=== PATIENT | female | born 1980 | race Caucasian/White ===

== ENCOUNTER 2018-03-22 18:46 | Emergency (ER) | payer MEDICAID ==
--- NOTE | 2018-03-22 19:06 | ED Physician Documentation ---
History of Present Illness - Stated complaint Stated Complaint: ANKLE INJURY - Chief complaint Chief Complaint: General - History obtained from History obtained from: Patient - History of Present Illness Timing: Today (37-year-old woman turned her ankle today and has lateral ankle pain and unable to ambulate. She declines pain medication on initial evaluation. No other injuries. 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, 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 - Present Medications Home Medications: Ambulatory Orders Medication Instructions Recorded Confirmed Gabapentin 300 mg PO 03/22/18 Meloxicam [Mobic] 7.5 mg PO BIDWM PRN #15 tablet 03/22/18 - Allergies Allergies/Adverse Reactions: Allergies Allergy/AdvReac Type Severity Reaction Status Date / Time meperidine HCl * Allergy unknown Verified 03/22/18 19:03 [From Demerol] ondansetron HCl * Allergy unknown Verified 03/22/18 19:03 [From Zofran] Penicillins Allergy unknown Verified 05/26/14 12:52 ibuprofen AdvReac Mild Nausea Verified 05/26/14 12:52 hydrocodone bitartrate * AdvReac Nausea Verified 05/26/14 12:52 [From Vicodin] - Social History Does the pt smoke?: Yes Smoking Status: Current every day smoker Does the pt drink ETOH?: Yes Does the pt have substance abuse?: No - Immunizations Immunizations are current?: Yes - POLST Patient has POLST: No PD ED PE NORMAL - Vitals Vital signs reviewed: Yes - General General: Alert and oriented X 3, No acute distress - Extremities Extremities: Other (Right leg, there is no tenderness over the proximal fibula. She is tender over the lateral malleolus more so than the ATFL. There is no foot or medial malleolar tenderness.) - Neuro Neuro: Alert and oriented X 3, Normal speech - Psych Psych: Normal mood, Normal affect Results - Vitals Vitals: Vital Signs - 24 hr 05/12/18 19:01 Temperature 36.6 C Heart Rate 93 Respiratory 20 Rate Blood Pressure 121/85 H O2 Saturation 98 Oxygen O2 Source Room air - Rads (name of study) R ankle 3v Radiology: EMP read contemporaneously (normal) Departure - Departure Disposition: Home, Self Care Clinical Impression: Right ankle sprain Qualifiers: Encounter type: initial encounter Involved ligament of ankle: deltoid ligament Qualified Code(s): S93.421A - Sprain of deltoid ligament of right ankle, initial encounter Condition: Good Record reviewed to determine appropriate education?: Yes Instructions: ED Sprain Ankle W X Ray Prescriptions: Meloxicam [Mobic] 7.5 mg PO BIDWM PRN #15 tablet PRN Reason: Pain Comments: Recheck with your doctor in 1 week if not better.
--- NOTE | 2018-03-22 20:00 | XRAY Report ---
EXAM: RIGHT ANKLE RADIOGRAPHY EXAM DATE: 03/22/2018 07:35 PM. CLINICAL HISTORY: Ankle pain post injury. COMPARISON: None. TECHNIQUE: 3 views. FINDINGS: Bones: Normal. No fractures or bone lesions. Joints: Normal. No effusion. No subluxations. The ankle mortise is normally aligned. Soft Tissues: Normal. No soft tissue swelling. IMPRESSION: Normal ankle radiography. [facility] Referring Provider Line: [phone] SITE ID: [id number]
--- NOTE | 2018-03-22 20:00 | XRAY Preliminary Report ---
Exam: XR ANKLE 3 VIEW RT IMPRESSION: Normal ankle radiography. [facility] SITE ID: [id number]
[2018-03-22] MEDS ORDERED: MELOXICAM 7.5 MG TABLET PO STA (20:13)
[2018-03-22 20:28] VITALS: BP 107/86
== END 2018-03-22 20:31 | disposition home or self-care (01) ==
LOC: ED 18:46
DX: S93.421A Sprain of deltoid ligament of right ankle, initial encounter (principal); X50.1XXA Overexertion from prolonged static or awkward postures, initial encounter; Y93.H2 Activity, gardening and landscaping; M32.9 Systemic lupus erythematosus, unspecified; M06.9 Rheumatoid arthritis, unspecified; M79.7 Fibromyalgia; F17.200 Nicotine dependence, unspecified, uncomplicated
CPT/HCPCS: 73610; 99283; A9270

== ENCOUNTER 2018-10-22 08:13 | Emergency (ER) | payer MEDICAID ==
[2018-10-22] MEDS ORDERED: oxyCODONE 5 MG TABLET PO STA (08:34)
[2018-10-22] MEDS ORDERED: PROMETHAZINE 25 MG TABLET PO STA (08:34)
[2018-10-22] MEDS ORDERED: LIDOCAINE 1%-EPI 1:100000 30 ML MDV TD STA (08:36)
--- NOTE | 2018-10-22 08:40 | ED Physician Documentation ---
History of Present Illness - Stated complaint Stated Complaint: LEFT LEG BUMP - Chief complaint Chief Complaint: Wound - Additonal information Additional information: hx from pt 37 f denies preg has lupus but not taking meds for same to ED with large abscess to L thigh states no known injury or open wound to that site subj fever chills NV today due to pain Review of Systems Constitutional: reports: Fever, Chills GI: reports: Nausea, Vomiting : denies: Now EGA (denies) Skin: reports: Other (abscess) Immunocompromised: denies: Immunocompromised PD PAST MEDICAL HISTORY - Past Medical History Cardiovascular: None Respiratory: None Endocrine/Autoimmune: Systemic lupus erythematosus GI: Hepatitis, Cholelithiasis : Retention, Chronic bladder infection HEENT: None Psych: Depression, Anxiety, Post traumatic stress disorder Musculoskeletal: Rheumatoid arthritis, Fibromyalgia, Fatigue, Chronic back pain Derm: None - Past Surgical History 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, 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 - Present Medications Home Medications: Ambulatory Orders Medication Instructions Recorded Confirmed Cephalexin [Keflex] 500 mg PO Q6H #28 capsule 10/22/18 Saccharomyces Boulardii [Florastor] 500 mg PO BID #40 capsule 10/22/18 Sulfamethox/Trimeth 800/160 1 each PO BID #14 tablet 10/22/18 [Bactrim Ds 800/160] - Allergies Allergies/Adverse Reactions: Allergies Allergy/AdvReac Type Severity Reaction Status Date / Time meperidine HCl * Allergy unknown Verified 10/22/18 08:23 [From Demerol] ondansetron HCl * Allergy unknown Verified 10/22/18 08:23 [From Zofran] Penicillins Allergy unknown Verified 10/22/18 08:23 ibuprofen AdvReac Mild Nausea Verified 10/22/18 08:23 hydrocodone bitartrate * AdvReac Nausea Verified 10/22/18 08:23 [From Vicodin] - Social History Does the pt smoke?: Yes Smoking Status: Current every day smoker Does the pt drink ETOH?: Yes Does the pt have substance abuse?: No - Immunizations Immunizations are current?: Yes - POLST Patient has POLST: No PD ED PE NORMAL - Vitals Vital signs reviewed: Yes - Cardiac Cardiac: RRR - Respiratory Respiratory: No respiratory distress, Clear bilaterally - Derm Derm: Other (large 10 cm diameter abscess to L thigh) Results - Vitals Vitals: Vital Signs - 24 hr 10/22/18 10/22/18 10/22/18 08:20 10:07 10:09 Temperature 36.7 C 36.8 C Heart Rate 86 77 Respiratory 16 16 Rate Blood Pressure 141/99 H 113/76 O2 Saturation 99 100 Oxygen O2 Source Room air - Labs Labs: Microbiology 10/22/18 10:00 Wound Culture - Preliminary Abscess Procedures - Abscess I&D (location) L thigh Preparation: Betadine, Lidocaine 1% (6 cc), With epi Incision: Incised with scalpel, Purulent drainage (large amt - used wall sucti on), Packed, Culture obtained Other: Pt tolerated well (painful despite dilaudid 2 mg and local anesthesia but pt cooperative and tolerated procedure), Dressing applied, Antibiotic prescribed PD MEDICAL DECISION MAKING - ED course ED course: no IV access, arms scarred, 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 but this is a huge abscess and pt will need some pain management to allow drainage tried PO but she vomited meds so gave IM then local anesthesia I&D yielded large amt of pus, packed, dressed, started keflex (pt has taken before s rxn despite penicillin allergy) and bactrim pt is homeless and does not have transport - will need to return to ER for packing change wound check as she also has no PMD - clearly explained to pt the importance of follow up care and taking her antibiotics SW met with pt to assist with fup transport etc - see SW note given that she is a heroin IVDA did not prescribe pain meds at dc Departure - Departure Disposition: 01 Home, Self Care Clinical Impression: Abscess Condition: Good Instructions: ED Abscess IandD Prescriptions: Cephalexin [Keflex] 500 mg PO Q6H #28 capsule Saccharomyces Boulardii [Florastor] 500 mg PO BID #40 capsule Sulfamethox/Trimeth 800/160 [Bactrim Ds 800/160] 1 each PO BID #14 tablet Comments: This was a very large abscess with significant surrounding skin infection. It is very very important that you get the antibiotics I have prescribed and take them as directed and that you come back to the ER each day to have the packing changed. If you do not take the antibiotics and return for wound checks the infection could get worse and you could develop sepsis or lose your leg or Discharge Date/Time: 10/22/18 12:11
[2018-10-22] MEDS ORDERED: HYDROmorphone 1 MG/ML CARPUJECT IM STA (09:04)
[2018-10-22] MEDS ORDERED: PROMETHAZINE 25 MG/1 ML VIAL IM STA (09:04)
[2018-10-22 10:08] VITALS: BP 113/76
[2018-10-22] MEDS ORDERED: cephALEXin 250 MG CAPSULE PO STA (10:13)
[2018-10-22] MEDS ORDERED: SULFAMETH/TRIMETH DS 800/160 MG TABLET PO STA (10:14)
== END 2018-10-22 12:11 | disposition home or self-care (01) ==
LOC: ED 08:13
DX: L02.416 Cutaneous abscess of left lower limb (principal); M32.9 Systemic lupus erythematosus, unspecified; F17.200 Nicotine dependence, unspecified, uncomplicated; Z59.0 Homelessness
CPT/HCPCS: 10060; 87070; 87205; 96372; 99283; A9270; J1170; Q0169; 87181

== ENCOUNTER 2019-01-01 03:02 | Emergency (ER) | payer MEDICAID ==
--- NOTE | 2019-01-01 03:13 | ED Physician Documentation ---
PD HPI ABD PAIN - Stated complaint Stated Complaint: L SIDE PAIN - History obtained from History obtained from: Patient - History of Present Illness Timing - onset: Yesterday Timing - details: Abrupt onset, Waxing and waning Pain level max: 10 Pain level now: 7 Quality: Pain Location: LUQ Radiation: Left flank Improved by: Other (nothing) Worsened by: Eating Associated symptoms: Nausea, Vomiting. No: Fever, Diarrhea, Constipation Similar symptoms before: Diagnosis (some similarity to previous episodes of pancreatitis) Recently seen: Emergency Dept (T+R from this ED 2 months ago for leg abscess) Review of Systems Constitutional: denies: Fever, Chills, Sweats Cardiac: reports: Reviewed and negative Respiratory: reports: Reviewed and negative GI: reports: Abdominal Pain, Nausea, Vomiting. 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 - Present Medications Home Medications: Ambulatory Orders Medication Instructions Recorded Confirmed Cephalexin [Keflex] 500 mg PO Q6H #28 capsule 10/22/18 Saccharomyces Boulardii [Florastor] 500 mg PO BID #40 capsule 10/22/18 Sulfamethox/Trimeth 800/160 1 each PO BID #14 tablet 10/22/18 [Bactrim Ds 800/160] Cephalexin [Keflex] 500 mg PO Q6H #28 capsule 01/01/19 Promethazine [Phenergan] 25 mg PO Q6H PRN #10 tab 01/01/19 - Allergies Allergies/Adverse Reactions: Allergies Allergy/AdvReac Type Severity Reaction Status Date / Time meperidine HCl * Allergy unknown Verified 10/22/18 08:23 [From Demerol] ondansetron HCl * Allergy unknown Verified 10/22/18 08:23 [From Zofran] Penicillins Allergy unknown Verified 10/22/18 08:23 ibuprofen AdvReac Mild Nausea Verified 10/22/18 08:23 hydrocodone bitartrate * AdvReac Nausea Verified 10/22/18 08:23 [From Vicodin] - Social History Does the pt smoke?: Yes Smoking Status: Current every day smoker Does the pt drink ETOH?: Yes Does the pt have substance abuse?: No - Immunizations Immunizations are current?: Yes - POLST Patient has POLST: No PD ED PE NORMAL - Vitals Vital signs reviewed: Yes - General General: Alert and oriented X 3, No acute distress, Well developed/nourished - HEENT HEENT: Moist mucous membranes - Neck Neck: Supple, no meningeal sign - Cardiac Cardiac: No murmur - Respiratory Respiratory: No respiratory distress, Clear bilaterally - Abdomen Abdomen: Normal bowel sounds, Soft, Non tender, Non distended PD ED PE EXPANDED - Cardiac Cardiac: Tachy, Regular Rhythm - Derm Derm: Track sanches (BUE) Results - Vitals Vitals: Vital Signs - 24 hr 01/01/19 04:30 Heart Rate 90 Respiratory 17 Rate Blood Pressure 123/82 H O2 Saturation 100 Oxygen O2 Source Room air - Labs Labs: Laboratory Tests 01/01/19 01/01/19 01/01/19 02:50 02:50 04:00 WBC 11.4 H RBC 5.24 Hgb 13.3 Hct 40.8 MCV 77.9 L MCH 25.4 L MCHC 32.6 RDW 15.9 H Plt Count 217 MPV 9.2 Neut # (Auto) 7.6 H Lymph # (Auto) 2.9 [place] # (Auto) 0.9 Eos # (Auto) 0.1 Baso # (Auto) 0.0 Absolute Nucleated RBC 0.01 Nucleated RBC % 0.1 Sodium 137 Potassium 3.1 L Chloride 105 Carbon Dioxide 22 Anion Gap 10.0 BUN 22 H Creatinine 0.9 Estimated GFR (MDRD) 70 L Glucose 150 H Calcium 9.8 Total Bilirubin 1.1 H AST 26 ALT 24 Alkaline Phosphatase 129 H Total Protein 8.8 H Albumin 4.2 Globulin 4.6 H Albumin/Globulin Ratio 0.9 L Lipase 23 Urine Color DARK YELLOW Urine Clarity h Urine pH 5.5 Ur Specific [place] >=1.030 H Urine Protein 30 H Urine Glucose (UA) NEGATIVE Urine Ketones NEGATIVE Urine Occult Blood NEGATIVE Urine Nitrite POSITIVE H Urine Bilirubin NEGATIVE Urine Urobilinogen 0.2 (NORMAL) Ur Leukocyte Esterase NEGATIVE Urine RBC 0-5 Urine WBC 11-25 H Ur Squamous Epith Cells FEW Squamous Urine Bacteria Many H Urine Casts 6-10 Fine Granular Ur Microscopic Review INDICATED Urine Culture Comments INDICATED Urine HCG, Qual NEGATIVE PD MEDICAL DECISION MAKING - ED course Complexity details: reviewed old records, reviewed results, re-evaluated patient, considered differential, d/w patient Departure - Departure Disposition: 01 Home, Self Care Clinical Impression: Hypokalemia Urinary tract infection Qualifiers: Urinary tract infection type: acute cystitis Hematuria presence: without hematuria Qualified Code(s): N30.00 - Acute cystitis without hematuria Condition: Good Instructions: ED Potassium Deficiency, ED UTI Cystitis Female Follow-Up: [facility] [Provider Group] [facility] [Provider Group] Prescriptions: Cephalexin [Keflex] 500 mg PO Q6H #28 capsule Promethazine [Phenergan] 25 mg PO Q6H PRN #10 tab PRN Reason: Nausea / Vomiting Discharge Date/Time: 01/01/19 05:00
[2019-01-01 03:31] LABS: BASOPHILS % (AUTO) 0.3 %; EOSINOPHILS # (AUTO) 0.1 10^3/uL (0.0-0.7); EOSINOPHILS % (AUTO) 0.7 %; HGB - HEMOGLOBIN 13.3 g/dL (12.0-16.0); LYMPHOCYTES # (AUTO) 2.9 10^3/uL (1.5-3.5); LYMPHOCYTES % (AUTO) 25.3 %; MEAN CORPUSCULAR HEMOGLOBIN 25.4 pg (27.0-31.0); MEAN CORPUSCULAR HGB CONC 32.6 g/dL (32.0-36.0); MEAN CORPUSCULAR VOLUME 77.9 fL (81.0-99.0); MEAN PLATELET VOLUME 9.2 fL (7.9-10.8); MONOCYTES # (AUTO) 0.9 10^3/uL (0.0-1.0); MONOCYTES % (AUTO) 7.5 %; NEUTROPHILS # (AUTO) 7.6 10^3/uL (1.5-6.6); NEUTROPHILS % (AUTO) 66.2 %; PLT - PLATELET COUNT 217 10^3/uL (130-450); RED BLOOD COUNT 5.24 10^6/uL (4.20-5.40); RED CELL DISTRIBUTION WIDTH 15.9 % (12.0-15.0); WHITE BLOOD COUNT 11.4 x10^3/uL (4.8-10.8)
[2019-01-01 03:56] LABS: ALBUMIN 4.2 g/dL (3.2-5.5); ALBUMIN/GLOBULIN RATIO 0.9 (1.0-2.2); BILIRUBIN,TOTAL 1.1 mg/dL (0.2-1.0); CALCIUM 9.8 mg/dL (8.5-10.3); CREATININE 0.9 mg/dL (0.4-1.0); TOTAL PROTEIN 8.8 g/dL (6.7-8.2)
[2019-01-01 04:05] LABS: GLUCOSE, URINE (UA) NEGATIVE (NEGATIVE); KETONES,URINE (UA) NEGATIVE (NEGATIVE); LEUKOCYTE ESTERASE, URINE NEGATIVE (NEGATIVE); NITRITE,URINE POSITIVE (NEGATIVE); OCCULT BLOOD,URINE NEGATIVE (NEGATIVE); PH,URINE 5.5 PH (5.0-7.5); PROTEIN,URINE 30 mg/dL (NEGATIVE); UROBILINOGEN,URINE 0.2 (NORMAL) E.U./dL (NORMAL)
[2019-01-01 04:08] LABS: BILIRUBIN,URINE NEGATIVE (NEGATIVE); HCG UR QUAL NEGATIVE; ICTOTEST,URINE NEGATIVE
[2019-01-01] MEDS ORDERED: PROMETHAZINE 25 MG TABLET PO STA (04:14)
[2019-01-01 04:15] LABS: RBC,URINE 0-5 /HPF (0-5)
[2019-01-01 04:16] LABS: BACTERIA,URINE Many /HPF (None Seen); SQUAMOUS EPITHELIAL CELL,UR FEW Squamous (<= Few)
[2019-01-01 04:31] VITALS: BP 123/82
[2019-01-01] MEDS ORDERED: NITROFURANTOIN MACRO 100 MG CAPSULE PO STA (04:31)
[2019-01-01] MEDS ORDERED: POTASSIUM BICARB 25 MEQ TABLET PO STA (04:41)
[2019-01-01] MEDS ORDERED: cephALEXin 250 MG CAPSULE PO STA (04:41)
== END 2019-01-01 05:00 | disposition home or self-care (01) ==
LOC: ED 03:02
DX: N30.00 Acute cystitis without hematuria (principal); E87.6 Hypokalemia; M32.9 Systemic lupus erythematosus, unspecified; F17.200 Nicotine dependence, unspecified, uncomplicated
CPT/HCPCS: 36415; 80053; 81001; 81025; 83690; 85025; 87086; 87181; 99283; A9270; Q0169; 81003

== ENCOUNTER 2019-04-09 06:11 | Emergency (ER) | payer MEDICAID ==
[2019-04-09 06:24] VITALS: BP 127/75
--- NOTE | 2019-04-09 06:53 | ED Physician Documentation ---
History of Present Illness - Stated complaint Stated Complaint: EAR PX/RT LEG PX - Chief complaint Chief Complaint: General - History obtained from History obtained from: Patient - Additonal information Additional information: Patient is a 38-year-old female with history of IV heroin use presenting with abscess to right posterior thigh. Patient denies the abscess resulting from IV drug use, however, she did use yesterday. Symptoms began prior to her using yesterday including warmth, redness, swelling, and pain. Patient denies fever or other symptoms.No other worsening or improving factors noted. 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 - Present Medications Home Medications: Ambulatory Orders Medication Instructions Recorded Confirmed Gabapentin 600 mg PO BID 04/09/19 04/09/19 Methadone 120 mg PO DAILY 04/09/19 04/09/19 - Allergies Allergies/Adverse Reactions: Allergies Allergy/AdvReac Type Severity Reaction Status Date / Time meperidine HCl * Allergy unknown Verified 04/09/19 06:24 [From Demerol] ondansetron HCl * Allergy unknown Verified 04/09/19 06:24 [From Zofran] Penicillins Allergy unknown Verified 04/09/19 06:24 ibuprofen AdvReac Mild Nausea Verified 04/09/19 06:24 hydrocodone bitartrate * AdvReac Nausea Verified 04/09/19 06:24 [From Vicodin] - Social History Does the pt smoke?: Yes Smoking Status: Current every day smoker Does the pt drink ETOH?: Yes Does the pt have substance abuse?: Yes Substance Use and Type: Heroin, Other - Immunizations Immunizations are current?: Yes - POLST Patient has POLST: No PD ED PE NORMAL - Vitals Vital signs reviewed: Yes - General General: Alert and oriented X 3, No acute distress, Well developed/nourished - HEENT HEENT: Atraumatic - Respiratory Respiratory: No respiratory distress - Derm Derm: Other (Golf ball sized area of abscess with surrounding cellulitis to right posterior thigh, tender and warm to the touch. No lymphangitis) - Extremities Extremities: No deformity, No tenderness to palpate, Normal ROM s pain, No edema - Neuro Neuro: Alert and oriented X 3, No motor deficit, No sensory deficit - Psych Psych: Normal mood, Normal affect Results - Vitals Vitals: Vital Signs - 24 hr 04/09/19 06:20 Temperature 36.4 C L Heart Rate 94 Respiratory 16 Rate Blood Pressure 127/75 O2 Saturation 100 Oxygen O2 Source Room air Procedures - Abscess I&D (location) Lower extremity right Posterior Preparation: Alcohol, Lidocaine 1%, With epi Incision: Incised with scalpel, Purulent drainage, Packed, Culture obtained Other: Pt tolerated well, Dressing applied PD MEDICAL DECISION MAKING - ED course Complexity details: re-evaluated patient, considered differential, d/w patient ED course: Patient presenting with abscess and surrounding cellulitis to right posterior thigh. Patient is amenable to an I&D which was performed with purulent drainage found and wound culture sent. Given concern for MRSA, plan to start antibiotics of both Bactrim and Keflex. Also discussed appropriate hygiene, wound care, return precautions, and follow-up. Otherwise, do not feel the patient is requiring further invasive testing or imaging. No signs of sepsis or other systemic illness. Patient voiced understanding and is comfortable discharge plan. Departure - Departure Disposition: 01 Home, Self Care Clinical Impression: Cellulitis and abscess of leg Condition: Good Instructions: ED Infec Skin Cellulitis Follow-Up: your, doctor [Other] Comments: Please keep area clean and dry using running water and soap to clean. Do not submerge underwater or apply heat. Please take antibiotics as prescribed to treat infection. If packing material falls out, leave it out. Please follow-up with your primary care physician in next 2 to 3 days and return to ED sooner if experience worsening symptoms or other concerns.
== END 2019-04-09 07:06 | disposition home or self-care (01) ==
LOC: ED 06:11
DX: L02.415 Cutaneous abscess of right lower limb (principal); L03.115 Cellulitis of right lower limb; F11.10 Opioid abuse, uncomplicated; M32.9 Systemic lupus erythematosus, unspecified; F17.200 Nicotine dependence, unspecified, uncomplicated
CPT/HCPCS: 10060; 99283

== ENCOUNTER 2019-08-24 15:58 | Inpatient (IN) | payer MEDICAID ==
[2019-08-24] MEDS ORDERED: diphenhydrAMINE INJ 50 MG/ML VIAL IVP STA (16:17)
[2019-08-24] MEDS ORDERED: BUFFERED LIDOCAINE 10 ML SYRINGE SUBQ STA (16:17)
[2019-08-24] MEDS ORDERED: METOCLOPRAMIDE 10 MG/2 ML VIAL IVP STA (16:17)
--- NOTE | 2019-08-24 16:22 | ED Physician Documentation ---
PD HPI FOCAL NEURO - Stated complaint Stated Complaint: NUMBNESS AND TINGLING LEFT SIDE - Chief complaint Chief Complaint: Neuro - History obtained from History obtained from: Patient - History of Present Illness Timing - onset: Today (38-year-old woman with history of IV drug use, currently on methadone but she says she is still using. Also history of stroke she says in May, complete resolution. She had some sort of blood clotting disorder for which she was placed on numerous anticoagulants and she recognizes the names aspirin, Plavix, and warfarin. She says she was on 3 blood thinners. She ran out of her blood thinners about a week ago due to some transportation and other social issues. At about that time she developed a painful abscess on the right leg. It is not associate with fevers or chills. She is never had MRSA. Today around 5 AM she noted left-sided numbness in the arm and the leg which made her worried about stroke again. She has a some moderate to severe frontal headache with this. It was not sudden in onset.) Review of Systems Constitutional: denies: Fever, Chills Cardiac: denies: Chest pain / pressure, Palpitations Respiratory: denies: Dyspnea, Cough GI: denies: Abdominal Pain, Nausea, Vomiting : denies: Dysuria PD PAST MEDICAL HISTORY - Past Medical History Cardiovascular: None Respiratory: None Neuro: Seizure disorder Endocrine/Autoimmune: Systemic lupus erythematosus GI: Hepatitis, Cholelithiasis : Retention, Chronic bladder infection HEENT: None Psych: Depression, Anxiety, Post traumatic stress disorder Musculoskeletal: Rheumatoid arthritis, Fibromyalgia, Fatigue, Chronic back pain Derm: None - Past Surgical History Past Surgical History: Yes 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, 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 - Present Medications Home Medications: Ambulatory Orders Medication Instructions Recorded Confirmed Gabapentin 600 mg PO BID 04/09/19 08/24/19 Methadone 120 mg PO DAILY 04/09/19 08/24/19 - Allergies Allergies/Adverse Reactions: Allergies Allergy/AdvReac Type Severity Reaction Status Date / Time meperidine HCl * Allergy unknown Verified 08/24/19 16:10 [From Demerol] ondansetron HCl * Allergy unknown Verified 08/24/19 16:10 [From Zofran] Penicillins Allergy unknown Verified 08/24/19 16:10 ibuprofen AdvReac Mild Nausea Verified 08/24/19 16:10 hydrocodone bitartrate * AdvReac Nausea Verified 08/24/19 16:10 [From Vicodin] - Social History Does the pt smoke?: Yes Smoking Status: Current every day smoker Does the pt drink ETOH?: Yes Does the pt have substance abuse?: Yes - Immunizations Immunizations are current?: Yes - POLST Patient has POLST: No PD ED PE NORMAL - Vitals Vital signs reviewed: Yes - General General: Alert and oriented X 3, No acute distress - HEENT HEENT: PERRL, EOMI - Neck Neck: Supple, no meningeal sign, No bony TTP - Cardiac Cardiac: RRR, No murmur - Respiratory Respiratory: No respiratory distress, Clear bilaterally - Abdomen Abdomen: Non tender - Extremities Extremities: Other (A lot of scarring in the antecubital fossa on the right from prior injection drug use, old healed self-inflicted lacerations on the left forearm. There is a large abscess, a little smaller than a baseball on the posterior lateral right thigh. 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, No motor deficit, No sensory deficit, Normal speech Eye Opening: Spontaneous Motor: Obeys Commands Verbal: Oriented GCS Score: 15 - Psych Psych: Normal mood, Normal affect NIHSS - Time Time: 16:18 - Level of Consciousness Level of consciousness: (0) Alert, Keenly responsive LOC Questions: (0) Answers both Q's correct LOC Commands: (0) Performs both correctly - Gaze Best Gaze: (0) Normal - Visual Visual: (0) No loss - Facial Palsy Facial Palsy: (0) Normal, symmetrical movement - Motor Arms (both separate) Motor Arm (right): (0) No drift Motor Arm (left): (0) No drift - Motor Legs (both separate) Motor Leg (right): (0) No drift Motor Leg (left): (0) No drift - Limb Ataxia Limb Ataxia: (0) Absent - Sensory Sensory: (0) Normal - Best Language Best Language: (0) No aphasia - Dysarthria Dysarthria: (0) Normal - Extinction and Inattention (formally neg Extinction and inattention: (0) No abnormality - Total Score/Results Total Score/Result: 0 Results - Vitals Vitals: Vital Signs - 24 hr 1008/24/19 08/24/19 16:06 17:07 17:44 Temperature 36.6 C Heart Rate 91 70 64 Respiratory 12 20 12 Rate Blood Pressure 132/89 H 107/71 102/59 L O2 Saturation 98 97 99 08/24/19 08/24/19 08/24/19 17:53 17:59 18:01 Temperature Heart Rate 126 H 68 104 H Respiratory 24 16 14 Rate Blood Pressure 148/99 H 151/102 H O2 Saturation 100 100 Oxygen O2 Source Nasal cannula - EKG (time done) 1649 Rate: Rate (enter#) (72) Rhythm: NSR [place]: Normal Intervals: Normal IA QRS: Normal Ischemia: Normal ST segments Computer interpretation: Agree with computer - Labs Labs: Laboratory Tests 08/24/19 08/24/19 08/24/19 16:32 16:32 16:32 WBC 10.3 RBC 4.34 Hgb 11.1 L Hct 36.2 L MCV 83.4 MCH 25.6 L MCHC 30.7 L RDW 14.3 Plt Count 301 MPV 10.6 Neut # (Auto) 8.6 H Lymph # (Auto) 1.0 L [place] # (Auto) 0.5 Eos # (Auto) 0.1 Baso # (Auto) 0.0 Absolute Nucleated RBC 0.00 Nucleated RBC % 0.0 PT 14.7 H INR 1.3 H Sodium 139 Potassium 4.2 Chloride 102 Carbon Dioxide 25 Anion Gap 12.0 BUN 10 Creatinine 0.6 Estimated GFR (MDRD) 112 Glucose 106 H Calcium 9.5 Total Bilirubin 0.9 AST 24 ALT 16 Alkaline Phosphatase 95 Total Protein 9.1 H Albumin 3.7 Globulin 5.4 H Albumin/Globulin Ratio 0.7 L Lipase 21 L Ethyl Alcohol < 5.0 - Rads (name of study) CTA Head Radiology: EMP read contemporaneously (NAD) CTA Neck Radiology: EMP read contemporaneously (Vascular rand she is normal. Multilevel disc degenerative disease with spinal stenosis at C5/C6.) Procedures - General procedure General procedure: She was difficult for IV access due to prior IV drug use. I personally placed a long 20-gauge IV in the right deep brachial vein using real-time ultrasound guidance after ChloraPrep that flushed easily and blood was drawn. - Abscess I&D (location) RLE Preparation: Betadine, Lidocaine 1% Incision: Incised with scalpel (2 incisions were made, one at the top end of the abscess somewhat at the bottom end, loculations were broken with hemostat and then a [place] was passed between the 2 incisions and looped outside. A culture was obtained.), Purulent drainage Other: Pt tolerated well - Procedural sedation Sedation prep: Informed consent, Time out completed, AHA 2 - mild disease Sedation medications: ketamine (150mg IVP) Patient status during sedation: Responds to tactile, Vitals remained stable, Maintained airway, Recovered uneventfully Sedation recovery: Recovered uneventfully Time in sedation (Minutes): 15 PD MEDICAL DECISION MAKING - ED course Complexity details: reviewed old records (Discharge in summary dated June 10 of this year from [facility] was received and reviewed.MRI showed a small CVA in the left insula. She had positive anti-phosphatidylserine antibody. She was on aspirin and Plavix for 3 weeks and then just Plavix was the plan.) ED course: 38-year-old woman with history of IV drug use, stroke in May, now medical noncompliance and off of the Plavix that she is supposed to be on for a week presents with left-sided numbness, arm and leg. She is not a candidate for TPA as the symptoms started almost 12 hours ago. No evidence of large vessel occlusion on CT angiography of the head or neck. She also has a large right thigh abscess. She will need sedation for incision and drainage, I do not think she would tolerate attempts at bedside incision and drainage without it. CT angiography was notable for potential spinal stenosis in the neck, I do not think this would explain unilateral symptoms in the arm and leg though. The abscess was incised and drained under sedation. A culture was sent. She is started on vancomycin. - Consults Consults: Discussed case with (Dr Otoole; for admit 222) Departure - Departure Disposition: 66 [facility] DC/Xfer Clinical Impression: Stroke-like symptoms, Cervical spinal stenosis, Abscess of right leg, IV drug abuse Condition: Fair
[2019-08-24] MEDS ORDERED: IOVERSOL 320 100 ML VIAL IVP ONE ×3 (16:32→21:04)
[2019-08-24 16:41] LABS: BASOPHILS % (AUTO) 0.4 %; EOSINOPHILS # (AUTO) 0.1 10^3/uL (0.0-0.7); EOSINOPHILS % (AUTO) 0.7 %; HGB - HEMOGLOBIN 11.1 g/dL (12.0-16.0); LYMPHOCYTES % (AUTO) 9.6 %; MEAN CORPUSCULAR HEMOGLOBIN 25.6 pg (27.0-31.0); MEAN CORPUSCULAR HGB CONC 30.7 g/dL (32.0-36.0); MEAN CORPUSCULAR VOLUME 83.4 fL (81.0-99.0); MEAN PLATELET VOLUME 10.6 fL (7.9-10.8); MONOCYTES # (AUTO) 0.5 10^3/uL (0.0-1.0); MONOCYTES % (AUTO) 4.9 %; NEUTROPHILS # (AUTO) 8.6 10^3/uL (1.5-6.6); NEUTROPHILS % (AUTO) 83.8 %; PLT - PLATELET COUNT 301 10^3/uL (130-450); RED BLOOD COUNT 4.34 10^6/uL (4.20-5.40); RED CELL DISTRIBUTION WIDTH 14.3 % (12.0-15.0); WHITE BLOOD COUNT 10.3 x10^3/uL (4.8-10.8)
[2019-08-24 16:45] LABS: INR 1.3 (0.8-1.2); PT - PROTHROMBIN TIME 14.7 secs (9.9-12.6)
[2019-08-24] MEDS ORDERED: VANCOMYCIN INJ 2 GM in SODIUM CHLORIDE 0.9% 500 ML IV STA (16:58)
[2019-08-24 17:00] LABS: ALBUMIN 3.7 g/dL (3.2-5.5); ALBUMIN/GLOBULIN RATIO 0.7 (1.0-2.2); ALKALINE PHOSPHATASE 95 IU/L (42-121); ALT ALANINE AMINOTRANSFERASE 16 IU/L (10-60); AST ASPARTATE AMINOTRANSFERASE 24 IU/L (10-42); BILIRUBIN,TOTAL 0.9 mg/dL (0.2-1.0); BUN - BLOOD UREA NITROGEN 10 mg/dL (6-20); CALCIUM 9.5 mg/dL (8.5-10.3); CARBON DIOXIDE - CO2 25 mmol/L (21-32); CHLORIDE 102 mmol/L (101-111); CREATININE 0.6 mg/dL (0.4-1.0); GFR - MDRD 112 (>89); GLUCOSE 106 mg/dL (70-100); LIPASE 21 U/L (22-51); SODIUM 139 mmol/L (135-145); TOTAL PROTEIN 9.1 g/dL (6.7-8.2)
--- NOTE | 2019-08-24 17:28 | CT Report ---
Reason: L numbness Procedure Date: 08/24/2019 Accession Number: [id number] / [id number] Procedure: CT - ANGIO HEAD W/WO CPT Code: FULL RESULT: CT HEAD WITHOUT AND WITH CONTRAST AND CT ANGIOGRAM HEAD INDICATION: 38-year-old female with left-sided numbness. Concern for possible CVA. Please assess. TECHNIQUE: Head CT Sequential 5 mm axial images were obtained through the brain, prior to and following the CT angiogram. CT angiogram head 80 cc of Optiray 320 contrast were injected at a rapid rate through a large bore, antecubital intravenous catheter. The head was scanned helically during arterial phase. The data was reconstructed into 0.5 mm axial images. In addition, MIP reconstructions have been generated in multiple projections to allow better assessment of the intracranial arteries. In accordance with CT protocol optimization, one or more of the following dose reduction techniques were utilized for this exam: automated exposure control, adjustment of mA and/or KV based on patient size, or use of iterative reconstructive technique. COMPARISON: None. FINDINGS: Head CT Ventricular size is normal. The cintron-white differentiation appears to be preserved bilaterally. No evidence of acute, large vessel territory cortical infarction. No intracranial hemorrhage or abnormal extra-axial fluid collection. No mass effect or midline shift. No enhancing space-occupying mass lesion is demonstrated. There appears to be normal intravascular contrast enhancement in the dural venous sinuses and deep venous structures. This effectively excludes the possibility of dural venous sinus thrombosis. The middle ear cavities and mastoid air cells appear clear. The imaged paranasal sinuses are essentially clear. CT angiogram head Anterior circulation: The internal carotid arteries appear widely patent bilaterally. No ICA aneurysm is identified. The A1 segment of the right anterior cerebral artery is mildly hypoplastic with larger left A1 segment. An anterior communicating artery is demonstrated. There appears to be good filling of the A2 and distal PAVAN branches bilaterally. No obvious PAVAN branch occlusion is demonstrated. The middle cerebral arteries are unremarkable. No aneurysm is identified and there is no obvious occlusion or hemodynamically significant stenosis affecting main branches of either MCA. There appear to be a similar number of opacified M3 and M4 branches bilaterally. Posterior circulation: The vertebral arteries and PICAs appear patent. No aneurysm is seen at either PICA origin. The basilar artery, superior cerebellar arteries and main branches of the posterior cerebral arteries appear widely patent. There is a small right posterior communicating artery. There appears to be a tiny left posterior communicator. No aneurysms are seen arising from the basilar artery trunk or apex. IMPRESSION: Head CT No acute intracranial pathology is demonstrated. In particular there is no intracranial hemorrhage and there is no evidence of an acute, large vessel territory cortical infarction (ASPECTS appears to equal 10 bilaterally). However it should be noted that early and small infarctions can be missed on CT. Therefore consider further assessment with MRI as clinically warranted. CT angiogram head Normal examination. In particular there is no evidence of occlusion or hemodynamically significant stenosis affecting main branches of the anterior or posterior circulations. In addition, no intracranial aneurysm is identified.
[2019-08-24] MEDS ORDERED: KETAMINE 500 MG/10 ML VIAL IVP STA (17:32)
[2019-08-24] MEDS ORDERED: ASPIRIN CHEW 81 MG TABLET PO STA (17:32)
[2019-08-24] MEDS ORDERED: CLOPIDOGREL 300 MG TABLET PO STA (17:32)
--- NOTE | 2019-08-24 17:34 | CT Report ---
Reason: L numbness Procedure Date: 08/24/2019 Accession Number: [id number] / [id number] Procedure: CT - ANGIO NECK W CPT Code: FULL RESULT: CT ANGIOGRAM NECK INDICATION: 38-year-old female with left-sided numbness. Concern for CVA. Please assess. TECHNIQUE: 80 cc of Optiray 320 contrast were injected at a rapid rate through a large bore right antecubital intravenous catheter. The neck was scanned helically during arterial phase. The data was reconstructed in 2.5 mm axial images. In addition, MIP reconstructions have been generated to provide better evaluation of the extracranial carotid and vertebral arteries. Significant arterial stenoses will be assessed using NASCET type measurements. In accordance with CT protocol optimization, one or more of the following dose reduction techniques were utilized for this exam: automated exposure control, adjustment of mA and/or KV based on patient size, or use of iterative reconstructive technique. COMPARISON: None. FINDINGS: The innominate artery and left common carotid artery share a common origin. This represents a non-anatomical variant. Branching of the aortic arch is otherwise normal. No stenoses are demonstrated in the first order, supra-aortic arteries. Right carotid artery: Widely patent throughout. Left carotid artery: Widely patent throughout. Right vertebral artery: Widely patent throughout. Left vertebral artery: Widely patent throughout. Incidentally noted is multilevel degenerative change in the cervical spine. There are prominent posterior osteophytes at C4-C5 and C5-C6 indenting the ventral aspect of the thecal sac and reducing the mid sagittal canal diameter to about 6 mm at C4-C5 and about 5.8 mm at C5-C6. IMPRESSION: 1. Normal neck CTA. No evidence of dissection or stenosis in the extracranial carotid or vertebral arteries. 2. Incidentally noted is multilevel disk degeneration in the cervical spine. There is significant appearing diskogenic spinal stenosis at C4-C5 and C5-C6, most prominent at C5-C6 where the mid sagittal canal diameter appears to be reduced to less than 6 mm. This typically equates to severe spinal stenosis. The possibility of cord impingement cannot be excluded. Consider further evaluation with dedicated cervical spine imaging (i.e. MRI) particularly if there is any clinical evidence of cervical myelopathy. RADIA
[2019-08-24] MEDS ORDERED: SODIUM CHLORIDE 0.9% 1,000 ML IV ONE (17:36)
[2019-08-24] MEDS ORDERED: VANCOMYCIN INJ 2 GM in SODIUM CHLORIDE 0.9% 500 ML IV ONE (18:00)
[2019-08-24] MEDS ORDERED: HYDROmorphone 1 MG/ML CARPUJECT IVP STA (18:07)
[2019-08-24] MEDS: HYDROmorphone 1 MG/ML CARPUJECT IVP PRN ×2 (19:48→21:46)
--- NOTE | 2019-08-24 20:27 | HISTORY & PHYSICAL EXAMINATION ---
Chief Complaint - Chief Complaint Chief Complaint: blurry vision, left-sided numbness and tinging History of Present Illness - Admitted From Admitted From:: [facility] ED - History Obtained From Records Reviewed: yes History obtained from: patient and records - History of Present Illness HPI Comment/Other: Patient seen on 08/24/19 at 19:30 pm Patient is a 38 y/o female who presented to the ED today with complain of left- sided numbness and tingling. Onset of her symptoms were around 5am on 08/24/19. She got concerned and decided to come in when she started experiencing blurry vision. She had similar symptoms in May when she was admitted at [place] and diagnosed with a stroke. She was discharged on plavix and aspirin. She was to take coumadin for 4 weeks then stop. She ran out of her medication and has not taken them for about 1 week now. She has been having difficulty ambulating since her stroke in May 2019 due to residual right-sided weakness and uses a cane. Today she could not do a [id number] test. CTA head and neck done in the ED today was unremarkable. Neurology was consulted and she was determined to be outside the window for TPA. She also complains of pain in the mid thigh bilaterally, worse on the lateral aspects. It was particularly worse on the right side where there was an appreciable swelling. She has history of opiod abuse and is currently on methadone. She denies injecting anything in her thighs. She was found to have and abscess which was incised and drained with a penros placed. Her history is somewhat limited because the patient has a gamez-positive ROS despite physical evidence contradicting some responses. As a result of her presentation, she is being admitted for further work up and treatment. 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 strokes on the paternal side of her family Living arrangement: At home Social History Notes: She smokes half pack cigarrette daily. She has history of opiate abuse and is currently on methadone. She denies alcohol use - POLST Patient has POLST: No POLST Status: Full Code Meds/Allgy - Home Medications Home Medications: Ambulatory Orders Medication Instructions Recorded Confirmed Gabapentin 600 mg PO BID 04/09/19 08/24/19 Methadone 80 mg PO DAILY 04/09/19 08/24/19 ALPRAZolam [Alprazolam] 0.25 mg PO TID 08/24/19 08/24/19 Clopidogrel [Plavix] 75 mg PO DAILY 08/24/19 08/24/19 - Allergies Allergies/Adverse Reactions: Allergies Allergy/AdvReac Type Severity Reaction Status Date / Time meperidine HCl * Allergy unknown Verified 08/24/19 16:10 [From Demerol] ondansetron HCl * Allergy unknown Verified 08/24/19 16:10 [From Zofran] Penicillins Allergy unknown Verified 08/24/19 16:10 ibuprofen AdvReac Mild Nausea Verified 08/24/19 16:10 hydrocodone bitartrate * AdvReac Nausea Verified 08/24/19 16:10 [From Vicodin] Review of Systems - Constitutional Constitutional: reports: Weakness. denies: Fatigue, Fever - Eyes Eyes: reports: Blurred vision - Ears, Nose & Throat Ears, Nose & Throat: denies: Nasal discharge, Sore throat, Hoarseness - Cardiovascular Cariovascular: denies: Irregular heart rate, Palpitations, Chest pain, Lightheadedness, Syncope - Respiratory Respiratory: denies: Cough, Sputum production, Wheezing, SOB at rest - Gastrointestinal Gastrointestinal: denies: Abdominal pain, Constipation, Diarrhea, Nausea, Vomi ting, Coffee grounds emesis, Reflux/heartburn - Genitourinary Genitourinary: denies: Dysuria, Frequency, Hematuria - Integumentary Integumentary: reports: Other (swelling and pain midthigh bilaterally) - Neurological Neurological: reports: Focal weakness (left-sided weakness), Headache, Numbness - Psychiatric Psychiatric: reports: Depression, Anxiety - Endocrine Endocrine: denies: Polyuria, Polydypsia - Hematologic/Lymphatic Hematologic/Lymphatic: denies: Anemia, Bruising, Petechiae Prior Level of Functionality: She has been have difficulty getting around since May 2019 due to residual right-sided weakness from a CVA then. She uses a cane Exam - Vital Signs Vital Signs: Vital Signs x48h Temp Pulse Pulse Resp BP BP Pulse Ox 08/24/19 19:24 37.1 C 63 19 116/71 100 08/24/19 18:57 61 18 124/87 H 99 08/24/19 18:34 36.8 C 70 16 124/87 H 100 08/24/19 18:17 72 18 136/98 H 100 08/24/19 18:01 104 H 14 151/102 H 100 08/24/19 17:59 68 16 08/24/19 17:53 126 H 24 148/99 H 100 08/24/19 17:44 64 12 102/59 L 99 08/24/19 17:07 70 20 107/71 97 08/24/19 16:06 36.6 C 91 12 132/89 H 98 - Physical Exam General Appearance: positive: Alert, Moderate distress, Severe distress. negative: Anxious, Lethargic Eyes Bilateral: positive: Normal inspection, PERRL, EOMI ENT: positive: ENT inspection nml. negative: Pharynx nml, No signs of dehydration Neck: positive: Nml inspection, Thyroid nml, No JVD, Trachea midline Respiratory: positive: Chest non-tender, No respiratory distress, Breath sounds nml. negative: Wheezes, Rales, Rhonchi Cardiovascular: positive: Regular rate & rhythm, No murmur Abdomen: positive: Non-tender, No organomegaly, Nml bowel sounds, No distention. negative: Guarding, Rebound Back: positive: Nml inspection Skin: positive: Color nml, Other (abscess on lateral aspect of right thigh painful swelling on lateral aspect of left thigh) Extremities: negative: Full ROM, Nml appearance, No pedal edema Neurologic/Psychiatric: positive: Oriented x3, CN's nml (2-12), Weakness (bilateral lower extremities), Depressed mood/affect. negative: Motor nml, Sensory loss, Facial droop, Slurred/abnml speech Conclusion/Plan - Problem List (1) Stroke Conclusion/Plan: Brain MRI w/o contrast ordered for the am MRI done on 06/03/19 was unremarkable. Neuro checks q 4hrs 2D echo done on 06/03/19 in [place] showed an EF of 60% There was no vegetation. Will not repeat echo Patient received plavix and aspirin in the ED. Will continue once verified by pharmacy Supposed to be on pravastatin (2) Abscess of right leg Conclusion/Plan: Incised and Drained in the ED. Penros drain in place Would cultures collected Patient on vancomycin. Pain management with dilaudid. Resume methadone once verified (3) Abscess of left leg Conclusion/Plan: Due to pain and swelling on the lateral aspect of the left thigh, a CT scan was done which confirmed the presence of an abscess General Surgery was consulted for I&D (4) Chronic back pain Conclusion/Plan: On gabapentin and methadone (5) Seizure Conclusion/Plan: This was after traumatic brain injury in the past. They were focal complex partial seizures She is supposed to be on keppra 750mg po bid but has not been taking it because she ran out Will resume (6) GERD (gastroesophageal reflux disease) Conclusion/Plan: Famotidine ordered (7) IV drug abuse Conclusion/Plan: On methadone. However patient's UDS is also positive for amphetamine (8) Bipolar 1 disorder Conclusion/Plan: Patient does not take any medication (9) Anxiety Conclusion/Plan: On alprazolam. - Lab Results Fish Bones: 08/24/19 16:32 08/24/19 16:32 Core Measures - Anticipated LOS I expect patient to be DC'd or transferred within 96 hours.: Yes - DVT/VTE - Prophylaxis VTE/DVT Device ordered at admit?: Yes VTE/DVT Prophylaxis med ordered at admit?: No
[2019-08-24] MEDS: FAMOTIDINE 20 MG/2 ML VIAL IVP SCH (20:30)
[2019-08-24 21:47] LABS: MUDS CUTOFF CONCENTRATIONS CUTOFF CONC BELOW:
[2019-08-24 21:50] LABS: BILIRUBIN,URINE NEGATIVE (NEGATIVE); GLUCOSE, URINE (UA) NEGATIVE (NEGATIVE); KETONES,URINE (UA) NEGATIVE (NEGATIVE); LEUKOCYTE ESTERASE, URINE NEGATIVE (NEGATIVE); NITRITE,URINE POSITIVE (NEGATIVE); OCCULT BLOOD,URINE NEGATIVE (NEGATIVE); PH,URINE 5.5 PH (5.0-7.5); PROTEIN,URINE NEGATIVE (NEGATIVE); UROBILINOGEN,URINE 0.2 (NORMAL) E.U./dL (NORMAL)
[2019-08-24 21:53] LABS: CLARITY,URINE HAZY (CLEAR); HCG UR QUAL NEGATIVE
[2019-08-24 21:59] LABS: AMORPHOUS SEDIMENT,UR Few /LPF; BACTERIA,URINE Few /HPF (None Seen); RBC,URINE 0-5 /HPF (0-5); SQUAMOUS EPITHELIAL CELL,UR MANY Squamous (<= Few)
[2019-08-24 22:03] LABS: AMPHETAMINE SCREEN,URINE POSITIVE (NEGATIVE); BENZODIAZEPINES SCREEN, URINE POSITIVE (NEGATIVE); COCAINE SCREEN URINE NEGATIVE (NEGATIVE); METHADONE SCREEN, URINE POSITIVE (NEGATIVE); METHAMPHETAMINES SCREEN, URINE POSITIVE (NEGATIVE); OPIATE SCREEN, URINE POSITIVE (NEGATIVE); TRICYCLIC ANTIDEPRESSANT,URINE NEGATIVE (NEGATIVE)
[2019-08-24 22:04] LABS: OXYCODONE SCREEN, URINE NEGATIVE (NEGATIVE); PROPOXYPHENE SCREEN, URINE NEGATIVE (NEGATIVE)
--- NOTE | 2019-08-24 22:06 | CT Report ---
Reason: swollen painful area on lateral midthigh Procedure Date: 08/24/2019 Accession Number: [id number] / [id number] Procedure: CT - LOWER EXTREMITY W - LT CPT Code: FULL RESULT: EXAM: LEFT LOWER EXTREMITY CT WITH CONTRAST EXAM DATE: 08/24/2019 09:45 PM. CLINICAL HISTORY: Swollen, painful area of the lateral mid thigh. COMPARISON: None. TECHNIQUE: Thin-section axial images were acquired of the lower extremity from the hip to the knee after administration of intravenous contrast. IV contrast: 100 mL Optiray 320. Post-processing: Coronal and sagittal reformats. Other: None. In accordance with CT protocol optimization, one or more of the following dose reduction techniques were utilized for this exam: automated exposure control, adjustment of mA and/or KV based on patient size, or use of iterative reconstructive technique. FINDINGS: Bones: No fracture or bone lesion. Joints: The visualized joint spaces are normal. Musculature: Normal. No fatty atrophy. Other: Lateral subcutaneous edema is in the distal thigh. There is an abscess overlying the vastus lateralis that measures 6.9 x 1.6 x 10.1 cm. It contains fluid and air (series 9, image 77; series 10 image 16). IMPRESSION: 1. Abscess overlying the distal left vastus lateralis. RADIA
--- NOTE | 2019-08-24 22:50 | CT Report ---
Reason: abscess on lateral mid thigh. Assess for tracking Procedure Date: 08/24/2019 Accession Number: [id number] / [id number] Procedure: CT - LOWER EXTREMITY W - RT CPT Code: FULL RESULT: EXAM: RIGHT LOWER EXTREMITY CT WITH CONTRAST EXAM DATE: 08/24/2019 10:07 PM. CLINICAL HISTORY: Abscess on lateral mid thigh. Assess for tracking. COMPARISON: None. TECHNIQUE: Thin-section axial images were acquired of the lower extremity from the sacroiliac joint to the proximal tibia after administration of intravenous contrast. IV contrast: 100 ML OPTIRAY 320. Post-processing: Coronal and sagittal reformats. Other: None. In accordance with CT protocol optimization, one or more of the following dose reduction techniques were utilized for this exam: automated exposure control, adjustment of mA and/or KV based on patient size, or use of iterative reconstructive technique. FINDINGS: Bones: No fracture seen. No focal area of bone destruction. Joints: No dislocation seen. Joint spaces are fairly well preserved. No large joint effusion. Musculature: Normal. No fatty atrophy. Other: Abscess with drain in place in the distal lateral thigh, involving the subcutaneous tissues and extending to the superficial aspect of the musculature. There is a small amount of residual air and fluid in the drained abscess cavity measuring about 2.0 x 0.8 cm, series 4 image 77. Reactive lymph nodes are seen in the right groin. IMPRESSION: 1. Drained abscess cavity in the distal lateral thigh with minimal residual air and fluid. RADIA
[2019-08-24] MEDS: SODIUM CHLORIDE FLUSH 0.9% 10 ML SYRINGE IVP SCH (23:06)
[2019-08-25] MEDS: HYDROmorphone 1 MG/ML CARPUJECT IVP PRN ×10 (00:08→22:00)
[2019-08-25] MEDS: SODIUM CHLORIDE 0.9% 1,000 ML IV SCH ×3 (02:05→21:25)
[2019-08-25 05:16] LABS: BASOPHILS % (AUTO) 0.4 %; EOSINOPHILS # (AUTO) 0.2 10^3/uL (0.0-0.7); EOSINOPHILS % (AUTO) 2.9 %; HGB - HEMOGLOBIN 9.2 g/dL (12.0-16.0); LYMPHOCYTES # (AUTO) 1.4 10^3/uL (1.5-3.5); LYMPHOCYTES % (AUTO) 19.5 %; MEAN CORPUSCULAR HEMOGLOBIN 25.2 pg (27.0-31.0); MEAN CORPUSCULAR HGB CONC 29.8 g/dL (32.0-36.0); MEAN CORPUSCULAR VOLUME 84.7 fL (81.0-99.0); MONOCYTES # (AUTO) 0.6 10^3/uL (0.0-1.0); MONOCYTES % (AUTO) 8.6 %; NEUTROPHILS # (AUTO) 4.9 10^3/uL (1.5-6.6); PLT - PLATELET COUNT 235 10^3/uL (130-450); RED BLOOD COUNT 3.65 10^6/uL (4.20-5.40); RED CELL DISTRIBUTION WIDTH 14.4 % (12.0-15.0); WHITE BLOOD COUNT 7.2 x10^3/uL (4.8-10.8)
[2019-08-25 05:31] LABS: CALCIUM 8.3 mg/dL (8.5-10.3); CREATININE 0.6 mg/dL (0.4-1.0); MAGNESIUM 2.1 mg/dL (1.7-2.8); PHOSPHORUS 2.8 mg/dL (2.5-4.6)
--- NOTE | 2019-08-25 08:47 | ANESTHESIA ---
Pre-Anesthesia VS, & Labs - Diagnosis B thigh pain/swelling - Procedure I&D B thighs Vital Signs: Temp Pulse Resp BP Pulse Ox 37.1 C 57 L 18 99/67 96 08/25/19 04:00 08/25/19 07:00 08/25/19 07:00 08/25/19 07:00 08/25/19 07:00 Height 5 ft 7 in Weight (kg) 78 kg Body Mass Index 28.8 - NPO >8 hours - Is Patient ?: No (-HCG 08/24) - Lab Results Current Lab Results: Laboratory Tests 08/25/19 04:54: Albumin 3.0 L 08/25/19 04:54: Sodium 140, Potassium 3.7, Chloride 107, Carbon Dioxide 24, Anion Gap 9.0, BUN 8, Creatinine 0.6, Estimated GFR (MDRD) 112, Glucose 81, Calcium 8.3 L, Phosphorus 2.8, Magnesium 2.1 08/25/19 04:54: WBC 7.2, RBC 3.65 L, Hgb 9.2 L, Hct 30.9 L, MCV 84.7, MCH 25.2 L , MCHC 29.8 L, RDW 14.4, Plt Count 235, MPV 11.0 H, Neut # (Auto) 4.9, Lymph # (Auto) 1.4 L, [place] # (Auto) 0.6, Eos # (Auto) 0.2, Baso # (Auto) 0.0, Absolute Nucleated RBC 0.00, Nucleated RBC % 0.0 08/24/19 21:30: Urine Opiates Screen POSITIVE H, Ur Oxycodone Screen NEGATIVE, Urine Methadone Screen POSITIVE H, Ur Propoxyphene Screen NEGATIVE, Ur Barbiturates Screen NEGATIVE, Ur Tricyclics Screen NEGATIVE, Ur Phencyclidine Scrn NEGATIVE, Ur Amphetamine Screen POSITIVE H, U Methamphetamines Scrn POS ITIVE H, U Benzodiazepines Scrn POSITIVE H, Urine Cocaine Screen NEGATIVE, U Cannabinoids Screen NEGATIVE 08/24/19 16:32: Sodium 139, Potassium 4.2, Chloride 102, Carbon Dioxide 25, Anion Gap 12.0, BUN 10, Creatinine 0.6, Estimated GFR (MDRD) 112, Glucose 106 H, Calcium 9.5, Total Bilirubin 0.9, AST 24, ALT 16, Alkaline Phosphatase 95, Total Protein 9.1 H, Albumin 3.7, Globulin 5.4 H, Albumin/Globulin Ratio 0.7 L, Lipase 21 L, Ethyl Alcohol < 5.0 08/24/19 16:32: PT 14.7 H, INR 1.3 H 08/24/19 16:32: WBC 10.3, RBC 4.34, Hgb 11.1 L, Hct 36.2 L, MCV 83.4, MCH 25.6 L , MCHC 30.7 L, RDW 14.3, Plt Count 301, MPV 10.6, Neut # (Auto) 8.6 H, Lymph # (Auto) 1.0 L, [place] # (Auto) 0.5, Eos # (Auto) 0.1, Baso # (Auto) 0.0, Absolute Nucleated RBC 0.00, Nucleated RBC % 0.0 Lab results reviewed: Yes Fish Bones: 08/25/19 04:54 08/25/19 04:54 Home Medications and Allergies Home Medications: Ambulatory Orders ALPRAZolam [Alprazolam] 0.25 mg PO TID 08/24/19 Clopidogrel [Plavix] 75 mg PO DAILY 08/24/19 Active Medications Clopidogrel Bisulfate (Plavix) 75 mg PO DAILY [facility] Famotidine (Pepcid) 20 mg IVP BID [facility] Last Admin: 08/24/19 20:30 Dose: 20 mg Hydromorphone HCl (Dilaudid Inj Carp) 1 mg IVP Q2HR PRN PRN Reason: Pain 8 to 10 Last Admin: 08/25/19 06:29 Dose: 1 mg Sodium Chloride (Normal Saline 0.9%) 1,000 mls @ 125 mls/hr IV .Q8H [facility] Last Admin: 08/25/19 02:05 Dose: 125 mls/hr Levetiracetam (Keppra) 750 mg PO BID [facility] Pravastatin Sodium (Pravachol) 80 mg PO QPM [facility] Sodium Chloride (Normal Saline Flush 0.9%) 10 ml IVP 0100,0900,1700 [facility] Last Admin: 08/24/19 23:06 Dose: Not Given Sodium Chloride (Normal Saline Flush 0.9%) 10 ml IVP PRN PRN PRN Reason: NEEDED PER PROVIDER ORDERS Gabapentin 600 mg PO BID 04/09/19 Methadone 80 mg PO DAILY 04/09/19 ALPRAZolam [Alprazolam] 0.25 mg PO TID 08/24/19 Clopidogrel [Plavix] 75 mg PO DAILY 08/24/19 Allergies/Adverse Reactions: Allergies Allergy/AdvReac Type Severity Reaction Status Date / Time meperidine HCl * Allergy unknown Verified 08/24/19 16:10 [From Demerol] ondansetron HCl * Allergy unknown Verified 08/24/19 16:10 [From Zofran] Penicillins Allergy unknown Verified 08/24/19 16:10 ibuprofen AdvReac Mild Nausea Verified 08/24/19 16:10 hydrocodone bitartrate * AdvReac Nausea Verified 08/24/19 16:10 [From Vicodin] Anes History & Medical History - Anesthetic History Anesthesia Complications: reports: No previous complications Family history of Anesthesia Complications: Denies Family history of Malignant Hyperthermia: Denies - Medical History Cardiovascular: reports: None Pulmonary: reports: None Gastrointestinal: reports: Hepatitis, Cholelithiasis Urinary: reports: Retention, Chronic bladder infection Neuro: reports: CVA (05/2019 L sided with residual R sided weakness (cane for ambulation)), Seizure disorder Musculoskeletal: reports: Rheumatoid arthritis, Fibromyalgia, Fatigue, Chronic back pain Endocrine/Autoimmune: reports: Systemic lupus erythematosus Blood Disorders: reports: Anemia Skin: reports: None Smoking Status: Current every day smoker Psychosocial: reports: Amphetamine, Methadone - Surgical History General: Cholecystectomy (open), Colonoscopy, EGD Urologic: Ureterolithotomy (stones) Gynecologic: section (x4), 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 Exam General: Alert, Oriented x3, Cooperative Dental: Dentures full Upper (out), Dentures full Lower (out) Mouth Openin Fingerbreadth Neck Mobility: Normal Mallampati classification: II Thyromental Distance: 4-6 cm Respiratory: Lungs clear, Normal breath sounds, No respiratory distress Cardiovascular: Regular rate Neurological: Normal speech Mental/Cognitive Status: Alert/Oriented X3, Normal for patient Cognitive Status: Within normal limits Plan Anesthesia Type: General Consent for Procedure(s) Verified and Reviewed: Yes Code Status: Attempt Resuscitation ASA classification: 3-Severe systemic disease Is this case an emergency?: Yes
[2019-08-25] MEDS: levETIRAcetam 250 MG TABLET PO SCH ×2 (09:05→20:18)
[2019-08-25] MEDS: FAMOTIDINE 20 MG/2 ML VIAL IVP SCH ×2 (09:05→20:18)
--- NOTE | 2019-08-25 09:31 | CONSULTATION NOTE ---
Referring Provider Name of Referring Provider:: Dr. Brand Consult Date: 08/25/19 Chief Complaint - Chief Complaint Chief Complaint: bilat thigh abscesses History of Present Illness - Admitted From Admitted From:: ER - History Obtained From Records Reviewed: yes History obtained from: pt, records Exam Limitations: poor historian - History of Present Illness HPI Comment/Other: 38 yo female admitted with stroke like sx, hx IV drug abuse, who c/o several month hx of bilateral lower lateral thigh pain, swelling without drainage or fever/chills. Hx of using thighs as injection sites but denies recent thigh injections. In the ER she was noted to have a right lateral thigh abscess and underwent I & D under ketamine sedation. On admission, a soft tissue mass concerning for abscess was noted on the left as well and CT of the lower extremities confirmed bilateral thigh abscesses involving subcutaneous tissue and appearing to extend deep to the investing fascia bilat left greater than right. A surgical drain was in place on the right. Surgical consultation was requested. She has a hx of a MRSA soft tissue infection/abscess of the left thigh in 10/2018, treated with I & D. Gm stain of abscess contents on right from yesterday notable for GPC. History - Past Medical History Cardiovascular: reports: None Respiratory: reports: None Neuro: reports: CVA (05/2019 L sided with residual R sided weakness (cane for ambulation)), Seizure disorder Endocrine/Autoimmune: reports: Systemic lupus erythematosus GI: reports: Hepatitis, Cholelithiasis : reports: Retention, Chronic bladder infection HEENT: reports: None Psych: reports: Depression, Anxiety, Post traumatic stress disorder Musculoskeletal: reports: Rheumatoid arthritis, Fibromyalgia, Fatigue, Chronic back pain Derm: reports: None MRSA Hx?: Yes - Past Surgical History General: reports: Cholecystectomy (open), Colonoscopy, EGD /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 strokes on the paternal side of her family Living arrangement: At home Social History Notes: She smokes half pack cigarrette daily. She has history of opiate abuse and is currently on methadone. She denies alcohol use - Substance History Abuse: Recurrent use of substance despite neg consequences: Opioid - POLST Patient has POLST: No POLST Status: Full Code Meds/Allgy - Home Medications Home Medications: Ambulatory Orders Medication Instructions Recorded Confirmed Gabapentin 600 mg PO BID 04/09/19 08/24/19 Methadone 80 mg PO DAILY 04/09/19 08/24/19 ALPRAZolam [Alprazolam] 0.25 mg PO TID 08/24/19 08/24/19 Clopidogrel [Plavix] 75 mg PO DAILY 08/24/19 08/24/19 - Allergies Allergies/Adverse Reactions: Allergies Allergy/AdvReac Type Severity Reaction Status Date / Time meperidine HCl * Allergy unknown Verified 08/24/19 16:10 [From Demerol] ondansetron HCl * Allergy unknown Verified 08/24/19 16:10 [From Zofran] Penicillins Allergy unknown Verified 08/24/19 16:10 ibuprofen AdvReac Mild Nausea Verified 08/24/19 16:10 hydrocodone bitartrate * AdvReac Nausea Verified 08/24/19 16:10 [From Vicodin] Review of Systems - Constitutional Constitutional: denies: Fever, Chills - Musculoskeletal Musculoskeletal: reports: Other (pain in thighs) Exam - Vital Signs Reviewed Vital Signs: Yes Vital Signs: Vital Signs x48h Temp Pulse Pulse Resp BP BP Pulse Ox 08/25/19 09:00 59 L 15 111/78 100 08/25/19 07:00 57 L 18 99/67 96 08/25/19 06:00 55 L 16 92/55 L 98 08/25/19 05:05 61 21 08/25/19 05:01 60 16 08/25/19 05:00 59 L 61 20 91/51 L 91/51 L 96 08/25/19 04:59 60 16 08/25/19 04:55 59 L 11 L 08/25/19 04:50 58 L 16 08/25/19 04:45 57 L 16 08/25/19 04:40 56 L 17 08/25/19 04:35 59 L 19 08/25/19 04:30 58 L 20 08/25/19 04:25 57 L 20 08/25/19 04:20 59 L 20 08/25/19 04:15 57 L 16 08/25/19 04:10 61 14 08/25/19 04:09 60 20 93/58 L 08/25/19 04:08 57 L 12 08/25/19 04:05 55 L 16 08/25/19 04:01 57 L 21 87/52 L 08/25/19 04:00 37.1 C 56 L 56 L 11 L 93/58 L 99 08/25/19 03:55 56 L 15 08/25/19 03:50 58 L 22 08/25/19 03:45 59 L 14 08/25/19 03:40 57 L 13 08/25/19 03:35 58 L 18 08/25/19 03:30 58 L 15 08/25/19 03:25 60 18 08/25/19 03:20 58 L 11 L 08/25/19 03:15 61 13 08/25/19 03:10 61 11 L 08/25/19 03:05 63 24 08/25/19 03:01 60 20 08/25/19 03:00 59 L 63 10 L 92/55 L 92/55 L 97 08/25/19 02:59 62 9 L 08/25/19 02:55 59 L 19 08/25/19 02:50 58 L 12 08/25/19 02:45 59 L 21 08/25/19 02:40 58 L 17 08/25/19 02:35 59 L 20 08/25/19 02:30 60 19 08/25/19 02:25 58 L 16 08/25/19 02:20 58 L 12 08/25/19 02:15 58 L 19 08/25/19 02:10 58 L 11 L 08/25/19 02:05 59 L 20 08/25/19 02:02 60 16 95/54 L 08/25/19 02:01 67 18 84/45 L 08/25/19 02:00 58 L 58 L 16 95/54 L 98 08/25/19 01:55 59 L 20 08/25/19 01:50 59 L 16 08/25/19 01:45 55 L 21 - Physical Exam General Appearance: positive: No acute distress, Alert Eyes Bilateral: positive: Normal inspection, No scleral icterus Neck: positive: Nml inspection, No JVD. negative: Lymphadenopathy (R), Lymphadenopathy (L) Respiratory: positive: Chest non-tender, No respiratory distress, Breath sounds nml Cardiovascular: positive: Regular rate & rhythm, No murmur, No gallop Peripheral Pulses: positive: 2+ Abdomen: positive: Non-tender, No organomegaly Skin: positive: Warm, Dry. negative: Cyanosis Extremities: positive: No pedal edema, Other (right thigh with dressing in place; unable to remove without severe discomfort left thigh: 10 cm diameter area mid lateral thigh of induration,erythema, equisite tenderness;no drainage; multiple tracks evident along medial thighs; no lymphangitic streaking, no inguinal lymphadenopathy;). negative: Calf tenderness Conclusion/Plan - Diagnosis Diagnosis: Bilateral thigh abscesses, likely MRSA, likely related to IV drug abuse - Plan Plan: I & D on the left; dressing change, reexploration and debridment as necessary on the right. PAR conference with pt. - Lab Results Lab results reviewed: Yes Fish Bones: 08/25/19 04:54 08/25/19 04:54 - Diagnostic Imaging Results Diagnostic Imaging Results: positive: Final report reviewed, Read independently Diagnostic Imaging Results Comments: See HPI
[2019-08-25] MEDS: METHADONE 5 MG TABLET PO SCH (10:57)
[2019-08-25] MEDS ORDERED: BUPIVACAINE 0.5%-EPI 1:200000 PF 30 ML VIAL ONE (11:40)
[2019-08-25] MEDS ORDERED: LIDOCAINE-MPF 1% 30 ML VIAL ONE (11:40)
[2019-08-25] MEDS ORDERED: LACTATED RINGERS 1,000 ML IV ONE ×2 (11:47→12:50)
[2019-08-25] MEDS ORDERED: MIDAZOLAM 2 MG/2 ML VIAL IVP ONE (11:49)
[2019-08-25] MEDS ORDERED: PROPOFOL 200 MG/20 ML VIAL IVP ONE (11:49)
[2019-08-25] MEDS ORDERED: fentaNYL 250 MCG/5 ML VIAL IVP ONE (11:49)
[2019-08-25] MEDS ORDERED: HYDROmorphone 1 MG/ML SYRINGE IVP ONE (11:49)
[2019-08-25] MEDS ORDERED: DEXAMETHASONE 4 MG/ML VIAL IVP ONE (11:49)
[2019-08-25] MEDS ORDERED: BUPIVACAINE 0.5%-EPI 1:200000 PF 30 ML VIAL SUBQ ONE ×3 (12:41→12:42)
[2019-08-25] MEDS: fentaNYL 100 MCG/2 ML VIAL ONE ×3 (13:23→13:35)
[2019-08-25] MEDS ORDERED: fentaNYL 100 MCG/2 ML VIAL ONE (13:41)
[2019-08-25] MEDS ORDERED: HYDROmorphone 0.5 MG/0.5 ML SYRINGE ONE (13:55)
[2019-08-25] MEDS: CLOPIDOGREL 75 MG TABLET PO SCH (14:30)
[2019-08-25] MEDS: SODIUM CHLORIDE FLUSH 0.9% 10 ML SYRINGE IVP SCH ×2 (14:30→17:20)
--- NOTE | 2019-08-25 16:01 | OPERATIVE REPORT ---
DATE OF SERVICE: 08/25/2019 Physician: Jeromy Ferrer MD PREOPERATIVE DIAGNOSIS: Soft tissue infection of bilateral thighs. POSTOPERATIVE DIAGNOSIS: Soft tissue infection of bilateral thighs. PROCEDURE PERFORMED: Incision and drainage of bilateral thigh soft tissue infections. ANESTHESIA: General endotracheal by RENU Murphy. SURGEON: Jeromy Ferrer MD ESTIMATED BLOOD LOSS: 25 mL COMPLICATIONS: None. FINDINGS: On the left was a 10 cm area of inflammation, induration and fat necrosis involving the ortega bcutaneous tissues and extending deep to the investing fascia in the mid lateral aspect of the left t high. On the right a partially drained abscess cavity was identified with additional loculations noemi rounding this cavity for a total diameter of 10 cm confined to the subcutaneous space. INDICATIONS: Patient is a 38-year-old woman with a history of IV drug abuse and a history of prior M RSA soft tissue infection of the left thigh treated with incision and drainage almost a year ago, adm itted today with evidence of a recurrent soft tissue infection on the left and a new soft tissue infe ction on the right, which was treated in the emergency room with incision and drainage. Examination revealed bilateral soft tissue infections confirmed by CT scanning with the infection on the left arely earing to extend deep to the investing fascia. She was advised to undergo operative exploration of b oth sites with additional debridement and drainage as necessary. Gram stain from the initial I and D site on the right revealed gram-positive cocci consistent with Staphylococcus aureus, possible MRSA. TECHNIQUE: After informed consent, patient was taken to the operating room where she was placed unde r general endotracheal anesthesia. She had previously been started on therapeutic doses of vancomyci n. Both lower extremities were prepared with ChloraPrep solution and draped in the usual sterile fas hion. Beginning on the left side a vertical incision approximately 5-6 cm in length was made overlyi ng the area of greatest induration and carried down into the subcutaneous tissues, which were explore d with findings noted above. The incision was carried down to and through the investing fascia. Nec rotic tissue was debrided, the wound was cultured, minimal pus was identified. Hemostasis achieved w ith electrocautery after all the loculations had been broken up. The wound was copiously irrigated w ith saline solution, following which, a wet-to-dry saline-soaked gauze dressing was applied followed by ABD, and Braden wrap. Attention was turned to the right side where patient's previous Gracie drain was removed. The 2 belen or incisions were then connected to create a similar sized incision to that on the left side. Additi onal loculations were broken up. Necrotic tissue was debrided. Hemostasis was achieved with electro cautery. The wound was irrigated with saline following which a similar wet-to-dry dressing was appli ed. Anesthesia was then terminated, and patient was transferred to the recovery room in satisfactory condition. Sponge and needle counts were correct x2 and no drains were used. TD: 08/25/2019 14:38
--- NOTE | 2019-08-25 18:15 | PROVIDER PROGRESS NOTE ---
Subjective - Prog Note Date Prog Note Date: 08/25/19 - Subjective Pt reports feeling: Improved Subjective: She continues to endorse numbness in her left lower extremity but reports no further left upper extremity weakness or numbness. She continues to complain of pain at the site of her incision as well as at the swelling on her left thigh. Denies fevers, chest pain or dyspnea. Current Medications - Current Medications Current Medications: Active Medications Clopidogrel Bisulfate (Plavix) 75 mg PO DAILY [facility] Famotidine (Pepcid) 20 mg IVP BID [facility] Last Admin: 08/25/19 09:05 Dose: 20 mg Hydromorphone HCl (Dilaudid Inj Carp) 1 mg IVP Q2HR PRN PRN Reason: Pain 8 to 10 Last Admin: 08/25/19 17:20 Dose: 1 mg Sodium Chloride (Normal Saline 0.9%) 1,000 mls @ 125 mls/hr IV .Q8H [facility] Last Infusion: 08/25/19 17:49 Dose: 125 mls/hr Levetiracetam (Keppra) 750 mg PO BID [facility] Last Admin: 08/25/19 09:05 Dose: Not Given Methadone HCl () 80 mg PO DAILY [facility] Last Admin: 08/25/19 10:57 Dose: 80 mg Pravastatin Sodium (Pravachol) 80 mg PO QPM [facility] Sodium Chloride (Normal Saline Flush 0.9%) 10 ml IVP 0100,0900,1700 [facility] Last Admin: 08/25/19 17:20 Dose: 10 ml Sodium Chloride (Normal Saline Flush 0.9%) 10 ml IVP PRN PRN PRN Reason: NEEDED PER PROVIDER ORDERS Gabapentin 600 mg PO BID 04/09/19 Methadone 80 mg PO DAILY 04/09/19 ALPRAZolam [Alprazolam] 0.25 mg PO TID 08/24/19 Clopidogrel [Plavix] 75 mg PO DAILY 08/24/19 Objective - Vital Signs/Intake & Output Reviewed Vital Signs: Yes Vital Signs: Vital Signs x48h Temp Pulse Pulse Resp BP BP Pulse Ox 08/25/19 17:00 36.8 C 66 14 99/60 98 08/25/19 14:51 71 15 107/63 100 08/25/19 14:28 56 L 12 109/71 99 08/25/19 14:00 36.1 C L 55 L 13 106/72 99 08/25/19 13:57 36.5 C 58 L 14 109/69 98 08/25/19 13:52 36.7 C 60 14 109/67 98 08/25/19 13:47 36.7 C 57 L 14 106/67 98 08/25/19 13:42 36.7 C 58 L 14 106/64 99 08/25/19 13:37 36.8 C 60 14 97/63 98 08/25/19 13:32 36.8 C 62 14 98/59 L 94 08/25/19 13:27 36.8 C 60 14 102/60 99 08/25/19 13:22 36.5 C 63 14 106/72 97 08/25/19 13:17 36.7 C 74 14 119/78 100 08/25/19 13:12 36.7 C 86 16 119/62 99 08/25/19 11:00 61 18 108/72 100 Intake & Output: Intake & Output 08/22/19 08/23/19 08/24/19 08/25/19 23:59 23:59 23:59 23:59 Intake Total 500 3616.666 Output Total 325 2450 Balance 175 1166.666 - Objective General Appearance: positive: No acute distress, Alert Eyes Bilateral: positive: Normal inspection ENT: positive: ENT inspection nml Neck: positive: Nml inspection Respiratory: positive: No respiratory distress. negative: Wheezes, Rales, Rhonchi Cardiovascular: positive: Regular rate & rhythm. negative: Tachycardia, Systolic murmur, Diastolic murmur Abdomen: positive: Non-tender, No distention. negative: Tenderness Skin: positive: No rash, Warm, Dry, Other (Dressing in place over the right thigh just above the knee. There is an area of induration above the lateral aspect of the left knee that is warm and tender to touch. Minimal erythema.) Extremities: positive: Full ROM, No pedal edema Neurologic/Psychiatric: positive: Oriented x3, Weakness (Decreased motor strength in left lower extremity which she attributes to pain at the thigh. Sensation intact.). negative: Motor nml, Disoriented to person, Disoriented to place, Disoriented to time, Sensory loss, Facial droop, Slurred/abnml speech - Lab Results Fish Bones: 08/25/19 04:54 08/25/19 04:54 Other Labs: Lab Results x24hrs 08/25/19 08/25/19 08/25/19 Range/Units 04:54 04:54 04:54 WBC 7.2 (4.8-10.8) x10^3/uL RBC 3.65 L (4.20-5.40) 10^6/uL Hgb 9.2 L (12.0-16.0) g/dL Hct 30.9 L (37.0-47.0) % MCV 84.7 (81.0-99.0) fL MCH 25.2 L (27.0-31.0) pg MCHC 29.8 L (32.0-36.0) g/dL RDW 14.4 (12.0-15.0) % Plt Count 235 (130-450) 10^3/uL MPV 11.0 H (7.9-10.8) fL Neut # (Auto) 4.9 (1.5-6.6) 10^3/uL Lymph # (Auto) 1.4 L (1.5-3.5) 10^3/uL Camp # (Auto) 0.6 (0.0-1.0) 10^3/uL Eos # (Auto) 0.2 (0.0-0.7) 10^3/uL Baso # (Auto) 0.0 (0.0-0.1) 10^3/uL Absolute Nucleated RBC 0.00 x10^3/uL Nucleated RBC % 0.0 /100WBC Sodium 140 (135-145) mmol/L Potassium 3.7 (3.5-5.0) mmol/L Chloride 107 (101-111) mmol/L Carbon Dioxide 24 (21-32) mmol/L Anion Gap 9.0 (6-13) BUN 8 (6-20) mg/dL Creatinine 0.6 (0.4-1.0) mg/dL Estimated GFR (MDRD) 112 (>89) Glucose 81 (70-100) mg/dL Calcium 8.3 L (8.5-10.3) mg/dL Phosphorus 2.8 (2.5-4.6) mg/dL Magnesium 2.1 (1.7-2.8) mg/dL Albumin 3.0 L (3.2-5.5) g/dL Urine Color Urine Clarity (CLEAR) Urine pH (5.0-7.5) PH Ur Specific Balm (1.002-1.030) Urine Protein (NEGATIVE) mg/dL Urine Glucose (UA) (NEGATIVE) mg/dL Urine Ketones (NEGATIVE) mg/dL Urine Occult Blood (NEGATIVE) Urine Nitrite (NEGATIVE) Urine Bilirubin (NEGATIVE) Urine Urobilinogen (NORMAL) E.U./dL Ur Leukocyte Esterase (NEGATIVE) Urine RBC (0-5) /HPF Urine WBC (0-5) /HPF Ur Squamous Epith Cells (<= Few) Amorphous Sediment /LPF Urine Bacteria (None Seen) /HPF Ur Microscopic Review Urine Culture Comments Urine HCG, Qual Nasal Screen MRSA (PCR) (NEGATIVE) Urine Opiates Screen (NEGATIVE) Ur Oxycodone Screen (NEGATIVE) Urine Methadone Screen (NEGATIVE) Ur Propoxyphene Screen (NEGATIVE) Ur Barbiturates Screen (NEGATIVE) Ur Tricyclics Screen (NEGATIVE) Ur Phencyclidine Scrn (NEGATIVE) Ur Amphetamine Screen (NEGATIVE) U Methamphetamines Scrn (NEGATIVE) U Benzodiazepines Scrn (NEGATIVE) Urine Cocaine Screen (NEGATIVE) U Cannabinoids Screen (NEGATIVE) 08/24/19 08/24/19 08/24/19 Range/Units 21:30 21:30 19:20 WBC (4.8-10.8) x10^3/uL RBC (4.20-5.40) 10^6/uL Hgb (12.0-16.0) g/dL Hct (37.0-47.0) % MCV (81.0-99.0) fL MCH (27.0-31.0) pg MCHC (32.0-36.0) g/dL RDW (12.0-15.0) % Plt Count (130-450) 10^3/uL MPV (7.9-10.8) fL Neut # (Auto) (1.5-6.6) 10^3/uL Lymph # (Auto) (1.5-3.5) 10^3/uL Camp # (Auto) (0.0-1.0) 10^3/uL Eos # (Auto) (0.0-0.7) 10^3/uL Baso # (Auto) (0.0-0.1) 10^3/uL Absolute Nucleated RBC x10^3/uL Nucleated RBC % /100WBC Sodium (135-145) mmol/L Potassium (3.5-5.0) mmol/L Chloride (101-111) mmol/L Carbon Dioxide (21-32) mmol/L Anion Gap (6-13) BUN (6-20) mg/dL Creatinine (0.4-1.0) mg/dL Estimated GFR (MDRD) (>89) Glucose (70-100) mg/dL Calcium (8.5-10.3) mg/dL Phosphorus (2.5-4.6) mg/dL Magnesium (1.7-2.8) mg/dL Albumin (3.2-5.5) g/dL Urine Color YELLOW Urine Clarity HAZY (CLEAR) Urine pH 5.5 (5.0-7.5) PH Ur Specific Balm <=1.005 (1.002-1.030) Urine Protein NEGATIVE (NEGATIVE) mg/dL Urine Glucose (UA) NEGATIVE (NEGATIVE) mg/dL Urine Ketones NEGATIVE (NEGATIVE) mg/dL Urine Occult Blood NEGATIVE (NEGATIVE) Urine Nitrite POSITIVE H (NEGATIVE) Urine Bilirubin NEGATIVE (NEGATIVE) Urine Urobilinogen 0.2 (NORMAL) (NORMAL) E.U./dL Ur Leukocyte Esterase NEGATIVE (NEGATIVE) Urine RBC 0-5 (0-5) /HPF Urine WBC 4-5 (0-5) /HPF Ur Squamous Epith Cells MANY Squamous H (<= Few) Amorphous Sediment Few /LPF Urine Bacteria Few (None Seen) /HPF Ur Microscopic Review INDICATED Urine Culture Comments NOT INDICATED Urine HCG, Qual NEGATIVE Nasal Screen MRSA (PCR) NEGATIVE (NEGATIVE) Urine Opiates Screen POSITIVE H (NEGATIVE) Ur Oxycodone Screen NEGATIVE (NEGATIVE) Urine Methadone Screen POSITIVE H (NEGATIVE) Ur Propoxyphene Screen NEGATIVE (NEGATIVE) Ur Barbiturates Screen NEGATIVE (NEGATIVE) Ur Tricyclics Screen NEGATIVE (NEGATIVE) Ur Phencyclidine Scrn NEGATIVE (NEGATIVE) Ur Amphetamine Screen POSITIVE H (NEGATIVE) U Methamphetamines Scrn POSITIVE H (NEGATIVE) U Benzodiazepines Scrn POSITIVE H (NEGATIVE) Urine Cocaine Screen NEGATIVE (NEGATIVE) U Cannabinoids Screen NEGATIVE (NEGATIVE) ABX Reporting Has patient been on IV antibiotics over the past 48 hours?: Yes Assessment/Plan - Problem List (1) Stroke-like symptoms Impression: Prior MRI showed no stroke although she states she was diagnosed with one. She reportedly takes Coumadin, Aspirin, and Plavix but will need to confirm with pharmacy if this is accurate. Will continue Plavix PO for now as well as statin. Fortunately most of her symptoms have resolved. MRI is pending. (2) Abscess of left leg Impression: She underwent I&D today with Dr. Ferrer after the CT was concerning for abscess. She is not septic. Suspect these abscesses occurred due to her IV drug use and she likely injects at those sites. Will initiate Vancomycin IV given risk for MRSA. Will also continue Dilaudid IV given her pain from the interventions. Will decrease over next 24 hours. (3) Abscess of right leg Impression: This was incised and drained in the ER. Dressing place over the site. Will continue Vancomycin IV as mentioned above. (4) IV drug abuse Impression: Continues to use heroin but denies methamphetamine use. I called the facility ([facility] in [place]) where she receives her Methadone and spoke with Willian who confirmed the patient does 80mg of Methadone and she was last seen at the clinic this past Saturday. Continue Methadone. (5) Seizure Impression: Stable. Continue Keppra. (6) Anxiety Impression: Stable. Continue Xanax. (7) GERD (gastroesophageal reflux disease) Impression: Stable. Continue Pepcid.
[2019-08-25] MEDS ORDERED: VANCOMYCIN INJ 1.25 GM in SODIUM CHLORIDE 0.9% 500 ML IV SCH (19:00)
[2019-08-25] MEDS ORDERED: VANCOMYCIN INJ 1 GM, VANCOMYCIN INJ 500 MG in SODIUM CHLORIDE 0.9% 500 ML IV ONE (19:30)
[2019-08-25] MEDS: PRAVASTATIN 40 MG TABLET PO SCH (20:19)
[2019-08-25] MEDS ORDERED: PRAVASTATIN 10 MG TABLET PO SCH (21:00)
[2019-08-26] MEDS: HYDROmorphone 1 MG/ML CARPUJECT IVP PRN ×3 (00:15→06:48)
[2019-08-26] MEDS: SODIUM CHLORIDE FLUSH 0.9% 10 ML SYRINGE IVP SCH ×3 (01:04→17:50)
[2019-08-26] MEDS: SODIUM CHLORIDE 0.9% 1,000 ML IV SCH (01:31)
[2019-08-26] MEDS: VANCOMYCIN INJ 1 GM in SODIUM CHLORIDE 0.9% 250 ML IV SCH ×3 (04:16→19:41)
[2019-08-26] MEDS: FAMOTIDINE 20 MG/2 ML VIAL IVP SCH ×2 (09:15→21:39)
[2019-08-26] MEDS: levETIRAcetam 250 MG TABLET PO SCH ×2 (09:16→21:39)
[2019-08-26] MEDS: CLOPIDOGREL 75 MG TABLET PO SCH (09:16)
[2019-08-26] MEDS: METHADONE 5 MG TABLET PO SCH (09:18)
[2019-08-26] MEDS ORDERED: HYDROmorphone 1 MG/ML CARPUJECT IVP STA (10:46)
[2019-08-26] MEDS: SODIUM CHLORIDE FLUSH 0.9% 10 ML SYRINGE IVP PRN ×3 (11:03→20:33)
[2019-08-26] MEDS: oxyCODONE 5 MG TABLET PO PRN ×3 (11:38→19:41)
--- NOTE | 2019-08-26 13:56 | PROVIDER PROGRESS NOTE ---
Subjective - Prog Note Date Prog Note Date: 08/26/19 - Subjective Subjective: She reports that her weakness has resolved but still has some mild numbness in her left lower extremity. Her range of motion in her lower extremities is limited by pain. She does report significant pain at the site of her incisions. Was able to get out of bed yesterday with assistance. Current Medications - Current Medications Current Medications: Active Medications Clopidogrel Bisulfate (Plavix) 75 mg PO DAILY [facility] Last Admin: 08/26/19 09:16 Dose: 75 mg Famotidine (Pepcid) 20 mg IVP BID [facility] Last Admin: 08/26/19 09:15 Dose: 20 mg Vancomycin HCl 1 gm/ Sodium (Chloride) 250 mls @ 167 mls/hr IV Q8H [facility] Last Admin: 08/26/19 12:48 Dose: 167 mls/hr Levetiracetam (Keppra) 750 mg PO BID [facility] Last Admin: 08/26/19 09:16 Dose: 750 mg Methadone HCl () 80 mg PO DAILY [facility] Last Admin: 08/26/19 09:18 Dose: 80 mg Oxycodone HCl (Roxicodone) 5 mg PO Q4HR PRN PRN Reason: PAIN Last Admin: 08/26/19 11:38 Dose: 5 mg Pravastatin Sodium (Pravachol) 80 mg PO QPM [facility] Last Admin: 08/25/19 20:19 Dose: 80 mg Sodium Chloride (Normal Saline Flush 0.9%) 10 ml IVP 0100,0900,1700 [facility] Last Admin: 08/26/19 09:16 Dose: 10 ml Sodium Chloride (Normal Saline Flush 0.9%) 10 ml IVP PRN PRN PRN Reason: NEEDED PER PROVIDER ORDERS Last Admin: 08/26/19 11:03 Dose: 10 ml Gabapentin 600 mg PO BID 04/09/19 Methadone 80 mg PO DAILY 04/09/19 ALPRAZolam [Alprazolam] 0.25 mg PO TID 08/24/19 Clopidogrel [Plavix] 75 mg PO DAILY 08/24/19 Objective - Vital Signs/Intake & Output Reviewed Vital Signs: Yes Vital Signs: Vital Signs x48h Temp Pulse Resp BP Pulse Ox 08/26/19 11:52 37.3 C 54 L 13 110/72 99 08/26/19 09:00 37.2 C 62 17 113/73 99 08/26/19 08:08 37.2 C 57 L 16 113/73 99 Intake & Output: Intake & Output 08/23/19 08/24/19 08/25/19 08/26/19 23:59 23:59 23:59 23:59 Intake Total 500 4333.333 1989 Output Total 325 3050 1450 Balance 175 1283.333 540 - Objective General Appearance: positive: Alert, Mild distress Eyes Bilateral: positive: Normal inspection ENT: positive: ENT inspection nml Neck: positive: Nml inspection Respiratory: positive: No respiratory distress. negative: Wheezes, Rales, Rhonchi Cardiovascular: positive: Regular rate & rhythm, No murmur, Bradycardia. negative: Tachycardia, Systolic murmur, Diastolic murmur Abdomen: positive: Non-tender, No distention Skin: positive: Other (Bandage in place over her bilateral lower extremities superior to the knees.) Extremities: positive: Other (Limited lower extremity movement secondary to pain.) Neurologic/Psychiatric: positive: Oriented x3, Sensation nml. negative: Disoriented to person, Disoriented to place, Disoriented to time - Lab Results Fish Bones: 08/25/19 04:54 08/25/19 04:54 ABX Reporting Has patient been on IV antibiotics over the past 48 hours?: Yes Assessment/Plan - Problem List (1) Stroke-like symptoms Impression: Prior MRI showed no stroke although she states she was diagnosed with one. Medication list was confirmed with her last discharge summary from [facility] and she is only taking Plavix at this time. Will continue Plavix PO for now as well as statin. Her symptoms have resolved. MRI is pending and scheduled to be completed today. (2) Abscess of left leg Impression: Underwent I&D with Dr. Ferrer on 08/25. Continues to have pain at the site. Continue Vancomycin IV and transition to oral antibiotics tomorrow. Oxycodone PO for pain control in preparation for discharge tomorrow. Will have her ambulate with nursing. If she requires quite a bit of assistance, will ask PT for evaluation. (3) Abscess of right leg Impression: Underwent I&D in the ER on 08/24. Cultures growing staph aureus. Will continue Vancomycin IV for one more day and likely transition to Bactrim PO on discharge given her history of IV drug use. (4) IV drug abuse Impression: Continues to use heroin but denies methamphetamine use despite being on toxicology screen. Methadone dose confirm at 80mg and has been continued. Will use Oxycodone PO for pain given her I&D's. (5) Seizure Impression: Stable. Continue Keppra. (6) Anxiety Impression: Stable. Continue Xanax. (7) GERD (gastroesophageal reflux disease) Impression: Stable. Continue Pepcid.
[2019-08-26 15:47] LABS: BASOPHILS % (AUTO) 0.5 %; EOSINOPHILS # (AUTO) 0.2 10^3/uL (0.0-0.7); EOSINOPHILS % (AUTO) 3.2 %; HGB - HEMOGLOBIN 8.8 g/dL (12.0-16.0); LYMPHOCYTES # (AUTO) 1.8 10^3/uL (1.5-3.5); MEAN CORPUSCULAR HEMOGLOBIN 25.4 pg (27.0-31.0); MEAN CORPUSCULAR HGB CONC 30.3 g/dL (32.0-36.0); MEAN CORPUSCULAR VOLUME 83.8 fL (81.0-99.0); MEAN PLATELET VOLUME 10.7 fL (7.9-10.8); MONOCYTES # (AUTO) 0.5 10^3/uL (0.0-1.0); MONOCYTES % (AUTO) 7.1 %; NEUTROPHILS # (AUTO) 4.1 10^3/uL (1.5-6.6); NEUTROPHILS % (AUTO) 61.9 %; PLT - PLATELET COUNT 240 10^3/uL (130-450); RED BLOOD COUNT 3.46 10^6/uL (4.20-5.40); RED CELL DISTRIBUTION WIDTH 14.3 % (12.0-15.0); WHITE BLOOD COUNT 6.7 x10^3/uL (4.8-10.8)
[2019-08-26 15:51] LABS: CALCIUM 8.5 mg/dL (8.5-10.3); CREATININE 0.7 mg/dL (0.4-1.0)
[2019-08-26] MEDS ORDERED: LORazepam 2 MG/ML VIAL IVP STA (20:10)
[2019-08-26] MEDS: PRAVASTATIN 40 MG TABLET PO SCH (21:39)
--- NOTE | 2019-08-26 22:07 | MRI Report ---
Reason: Stroke-like symptoms. Left upper extremity weaknes Procedure Date: 08/26/2019 Accession Number: [id number] / [id number] Procedure: MRI - Brain W/O CPT Code: FULL RESULT: EXAM: MRI BRAIN WITHOUT CONTRAST EXAM DATE: 08/26/2019 09:39 PM. CLINICAL HISTORY: Stroke-like symptoms. Left upper extremity weakness. COMPARISON: HEAD W/O STROKE PROTOCOL 08/24/2019 4:37 PM HEAD ANGIO 08/24/2019 4:37 PM. TECHNIQUE: Multiplanar, multisequence T1-weighted and fluid-sensitive MR sequences of the brain were performed. Sequences optimized for routine evaluation. Other: None. IV Contrast: None. FINDINGS: Comment: Image quality is mildly degraded by patient motion artifact. Brain Volume: Normal for age. Parenchyma/Dura: No mass, acute infarct or hemorrhage. No white matter lesions identified. Ventricles/Cisterns: No hydrocephalus. No abnormal extra-axial fluid collection or hemorrhage. Orbits: Symmetric and unremarkable. Sella Turcica: Unremarkable. Vasculature: Normal signal flow void is seen in the major arterial structures at the skull base. Sinuses: No acute appearing sinus disease. There is mild mucosal thickening in the inferior right maxillary sinus. Bones: No focal pathologic appearing marrow signal changes. Other: No Chiari I malformation. IMPRESSION: 1. No acute intracranial abnormality. 2. No intercranial mass lesion, mass-effect, or hydrocephalus. 3. Mild motion artifact. Otherwise unremarkable MRI brain without contrast. [facility]
[2019-08-26] MEDS: ALPRAZolam 0.25 MG TABLET PO SCH (22:12)
[2019-08-27] MEDS: oxyCODONE 5 MG TABLET PO PRN ×5 (00:59→17:17)
[2019-08-27] MEDS: SODIUM CHLORIDE FLUSH 0.9% 10 ML SYRINGE IVP SCH ×3 (01:01→17:04)
[2019-08-27] MEDS: VANCOMYCIN INJ 1 GM in SODIUM CHLORIDE 0.9% 250 ML IV SCH (04:29)
[2019-08-27] MEDS: SODIUM CHLORIDE FLUSH 0.9% 10 ML SYRINGE IVP PRN (04:29)
[2019-08-27] MEDS: ALPRAZolam 0.25 MG TABLET PO SCH ×2 (05:55→14:02)
[2019-08-27 05:59] LABS: BASOPHILS % (AUTO) 0.6 %; EOSINOPHILS # (AUTO) 0.3 10^3/uL (0.0-0.7); EOSINOPHILS % (AUTO) 4.9 %; HGB - HEMOGLOBIN 8.5 g/dL (12.0-16.0); LYMPHOCYTES # (AUTO) 2.2 10^3/uL (1.5-3.5); LYMPHOCYTES % (AUTO) 33.1 %; MEAN CORPUSCULAR HEMOGLOBIN 25.2 pg (27.0-31.0); MEAN CORPUSCULAR HGB CONC 30.4 g/dL (32.0-36.0); MEAN CORPUSCULAR VOLUME 83.1 fL (81.0-99.0); MEAN PLATELET VOLUME 10.2 fL (7.9-10.8); MONOCYTES # (AUTO) 0.5 10^3/uL (0.0-1.0); MONOCYTES % (AUTO) 7.2 %; NEUTROPHILS # (AUTO) 3.5 10^3/uL (1.5-6.6); PLT - PLATELET COUNT 251 10^3/uL (130-450); RED BLOOD COUNT 3.37 10^6/uL (4.20-5.40); RED CELL DISTRIBUTION WIDTH 14.4 % (12.0-15.0); WHITE BLOOD COUNT 6.5 x10^3/uL (4.8-10.8)
[2019-08-27 06:07] LABS: CALCIUM 8.4 mg/dL (8.5-10.3); CREATININE 0.7 mg/dL (0.4-1.0)
[2019-08-27] MEDS ORDERED: oxyCODONE 5 MG TABLET PO PRN (08:19)
[2019-08-27] MEDS: METHADONE 5 MG TABLET PO SCH (08:22)
[2019-08-27] MEDS: FAMOTIDINE 20 MG/2 ML VIAL IVP SCH (08:24)
[2019-08-27] MEDS: levETIRAcetam 250 MG TABLET PO SCH ×2 (08:24→18:31)
[2019-08-27] MEDS ORDERED: GABAPENTIN 300 MG CAPSULE PO SCH ×2 (09:00→19:00)
[2019-08-27] MEDS ORDERED: METHADONE 5 MG TABLET PO SCH (09:00)
[2019-08-27] MEDS ORDERED: CLOPIDOGREL 75 MG TABLET PO SCH (09:00)
[2019-08-27] MEDS: ACETAMINOPHEN 500 MG TABLET PO SCH ×2 (09:30→17:17)
[2019-08-27] MEDS: NAPROXEN 250 MG TABLET PO SCH ×2 (09:31→17:04)
[2019-08-27] MEDS ORDERED: DOXYCYCLINE 100 MG TABLET PO SCH ×3 (11:00→21:00)
[2019-08-27 11:56] LABS: VANCOMYCIN,TROUGH 24.1 ug/mL (10.0-20.0)
--- NOTE | 2019-08-27 13:18 | Discharge Plan ---
Discharge Plan Problem Reviewed?: Yes Disposition: Home, Self Care Condition: Fair Prescriptions: Acetaminophen [Tylenol Extra Strength] 1,000 mg PO Q8HR #30 tablet Doxycycline Monohydrate 100 mg PO BID 5 Days #10 tablet Gauze Bandage [Rolled Gauze] 1 each TP DAILY #14 bandage Gauze Bandage [Gauze Pad] 1 each TP DAILY #14 bandage Levetiracetam [Keppra] 750 mg PO BID #60 tablet oxyCODONE [Roxicodone] 10 mg PO Q6H PRN #30 tablet PRN Reason: Pain Soft Lens Rinse,Store Solution [Saline Solution] 25 ml MC DAILY #1 solution Diet: Regular Activity Restrictions: Activity as Tolerated Assistance Devices: Walker Instruction Topics: Wound Care Dc, Wound Pack Dc Health Concerns: You were seen in the hospital for stroke like symptoms. Fortunately, an MRI was done which did not show a stroke. You were also found to have a fluid collection in both of your lungs concerning for an abscess. Both of these collections were debrided and you were treated with antibiotics while in the hospital. You will need to continue to take antibiotics on discharge. Because of your pain, we will provide you with a prescription for oxycodone to take on a short term basis in addition to your methadone. You will need to change your own dressing at home until you are seen in the wound care clinic next week. You will need a walker for ambulation for a period of time as you recover from your procedures. Plan of Treatment: Take Doxycycline 100mg twice a day for 5 more days. You were provided with Oxycodone 10mg every 6 hours as needed. You were given 30 tablets. You were also provided with a prescription for supplies to change your dressing. Please change both of your wounds on a daily basis and follow up with the wound care clinic. You will be provided with a walker to help you ambulate. Care Goals: Please make an appointment with your primary care physician for follow up. Please follow up with wound care as they will call you with your appointment date and time. Assessment: The patient expressed understanding of the treatment and goals. Follow-Up Care: [facility] - Wound/Ostomy No Smoking: If you smoke, Please STOP! Call for help.
[2019-08-27 14:00] VITALS: BP 102/65
--- NOTE | 2019-08-27 16:23 | DISCHARGE SUMMARY ---
"Discharge Summary Admit Date: 08/24/19 Discharge Date: 08/27/19 Discharging Provider: Dr. Chester Jaimes Primary Care Provider: No PCP Code Status: Attempt Resuscitation Condition at Discharge: Fair Discharge Disposition: 01 Home, Self Care - DIAGNOSES Admission Diagnoses: Stroke Abscess of right left Abscess of left leg Chronic back pain Seizure GERD IV drug abuse Bipolar 1 disorder Anxiety Discharge Diagnoses with Status of Each Condition: Stroke-like symptoms - resolved. Presented with left sided numbness of upper and lower extremity. MRI brain negative. Continue Plavix and Statin PO. Abscess of left leg - improving. She is s/p I&D with General Surgery. Received Vancomycin IV inpatient. Cultures grew Staph. Will continue Doxycyline 100mg PO BID for 5 more days. Will require walker for ambulation temporarily. Follow up with wound care for dressing changes. She was given a prescription for Oxycodone 10mg every 6 hours PRN for pain. Abscess of right leg - improving. As mentioned above. IV drug abuse - Stable. Continue Methadone 80mg daily. She was given a prescription for Oxycodone 10mg every 6 hours PRN for pain. [facility] to inform them as she is on Methadone. She will need to bring her discharge paper work to her next visit. This was discussed with the patient. Seizure - Stable. Continue Keppra. Anxiety - Stable. Continue Xanax. - HPI History of Present Illness: Per Dr. Brand on 08/24/19: Patient is a 38 y/o female who presented to the ED today with complain of left- sided numbness and tingling. Onset of her symptoms were around 5am on 08/24/19. She got concerned and decided to come in when she started experiencing blurry vision. She had similar symptoms in May when she was admitted at [facility] and diagnosed with a stroke. She was discharged on plavix and aspirin. She was to take coumadin for 4 weeks then stop. She ran out of her medication and has not taken them for about 1 week now. She has been having difficulty ambulating since her stroke in May 2019 due to residual right-sided weakness and uses a cane. Today she could not do a [id number] test. CTA head and neck done in the ED today was unremarkable. Neurology was consulted and she was determined to be outside the window for TPA. She also complains of pain in the mid thigh bilaterally, worse on the lateral aspects. It was particularly worse on the right side where there was an appreciable swelling. She has history of opiod abuse and is currently on m ethadone. She denies injecting anything in her thighs. She was found to have and abscess which was incised and drained with a penros placed. Her history is somewhat limited because the patient has a gamez-positive ROS despite physical evidence contradicting some responses. As a result of her presentation, she is being admitted for further work up and treatment. - CONSULTS | PROCEDURES Consultations: Neurology in the ED. Procedures: MRI brain. CTA neck/head. OR for I&D for left and right thigh abscess on 08/[address] Ferrer. - HOSPITAL COURSE Hospital Course: She was admitted for stroke like symptoms have having left sided upper and lower extremity numbness. She was outside of the window for TPA. CTA of head/neck were unremarkable. She had an MRI which was negative for stroke. She was then continued on Plavix and Statin given her prior history of stroke at [facility] and these were her home medications. She was found to have bilateral leg abscesses. She underwent I&D in the ER of the right leg and started on Vancomycin. A CT of her left leg confirmed an abscess there as well. She went to the OR on 08/25 for I&D with Dr. Ferrer. Cultures from the left leg grew staph aureus. She was transitioned to Doxcycline PO to complete a 7 day course of antibiotics. She will require a walker for ambulation given her procedures. She was setup with a follow up appointment with wound care. - ALLERGIES Allergies/Adverse Reactions: Allergies Allergy/AdvReac Type Severity Reaction Status Date / Time meperidine HCl * Allergy unknown Verified 08/24/19 16:10 [From Demerol] ondansetron HCl * Allergy unknown Verified 08/24/19 16:10 [From Zofran] Penicillins Allergy unknown Verified 08/24/19 16:10 ibuprofen AdvReac Mild Nausea Verified 08/24/19 16:10 hydrocodone bitartrate * AdvReac Nausea Verified 08/24/19 16:10 [From Vicodin] - MEDICATIONS Home Medications: Ambulatory Orders Medication Instructions Recorded Confirmed Gabapentin 600 mg PO BID 04/09/19 08/24/19 Methadone 80 mg PO DAILY 04/09/19 08/24/19 ALPRAZolam [Alprazolam] 0.25 mg PO TID 08/24/19 08/24/19 Clopidogrel [Plavix] 75 mg PO DAILY 08/24/19 08/24/19 Acetaminophen [Tylenol Extra 1,000 mg PO Q8HR #30 tablet 08/27/19 Strength] Doxycycline Monohydrate 100 mg PO BID 5 Days #10 tablet 08/27/19 Gauze Bandage [Gauze Pad] 1 each TP DAILY #14 bandage 08/27/19 Gauze Bandage [Rolled Gauze] 1 each TP DAILY #14 bandage 08/27/19 Levetiracetam [Keppra] 750 mg PO BID #60 tablet 08/27/19 Pravastatin [Pravachol] 80 mg PO QPM tablet 08/27/19 Soft Lens Rinse,Store Solution 25 ml MC DAILY #1 solution 08/27/19 [Saline Solution] oxyCODONE [Roxicodone] 10 mg PO Q6H PRN #30 tablet 08/27/19 - PHYSICAL EXAM AT DISCHARGE General Appearance: positive: No acute distress, Alert Eyes Bilateral: positive: Normal inspection ENT: positive: ENT inspection nml Neck: positive: Nml inspection Respiratory: positive: No respiratory distress. negative: Wheezes, Rales, Rhonchi Cardiovascular: positive: Regular rate & rhythm, No murmur. negative: Tachycardia, Bradycardia, Systolic murmur, Diastolic murmur Peripheral Pulses: positive: 2+ Abdomen: positive: Non-tender, No distention. negative: Tenderness Skin: positive: Other (Braden wrap in placed over bilateral lower extremites just above the knee.) Extremities: positive: No pedal edema, Other (Distal pulses +2 in her lower extremities. Sensation intact. Limited range of motion due to pain.) Neurologic/Psychiatric: positive: Oriented x3, Motor nml, Sensation nml, Weakness (She does have some lower extremity weakness secondary to pain.). negative: Disoriented to person, Disoriented to place, Disoriented to time, Sensory loss - LABS Result Diagrams: 08/27/19 05:50 08/27/19 05:50 - DIAGNOSTIC IMAGING Diagnostic Imaging Results: Final report reviewed - FOLLOW UP Follow Up: She was asked to make an appointment with a PCP for follow up in one week. She will be seen by wound care for dressing changes. - TIME SPENT Time Spent in Discharge (Minutes): 45"
[2019-08-27] MEDS: PRAVASTATIN 40 MG TABLET PO SCH (18:31)
[2019-08-27] MEDS ORDERED: PRAVASTATIN 40 MG TABLET PO SCH (19:00)
[2019-08-27] MEDS ORDERED: levETIRAcetam 250 MG TABLET PO SCH (19:00)
== END 2019-08-27 18:40 | disposition home or self-care (01) | DRG 41 ==
LOC: ED 15:58 → ICU 18:12
PROVIDERS: ADMIT Internal Medicine; ATTEND Internal Medicine
PROC: 0JBL0ZZ Excision of Right Upper Leg Subcutaneous Tissue and Fascia, Open Approach (ICD-10-PCS; 2019-08-25)
PROC: 0JBM0ZZ Excision of Left Upper Leg Subcutaneous Tissue and Fascia, Open Approach (ICD-10-PCS; principal; 2019-08-25 11:00)
DX: R20.0 Anesthesia of skin (principal); L02.415 Cutaneous abscess of right lower limb; I96 Gangrene, not elsewhere classified; I69.351 Hemiplegia and hemiparesis following cerebral infarction affecting right dominant side; L02.416 Cutaneous abscess of left lower limb; F11.10 Opioid abuse, uncomplicated; B95.61 Methicillin susceptible Staphylococcus aureus infection as the cause of diseases classified elsewhere; R20.2 Paresthesia of skin; R51 Headache; H53.8 Other visual disturbances; R53.1 Weakness; M79.89 Other specified soft tissue disorders; M32.9 Systemic lupus erythematosus, unspecified; G40.909 Epilepsy, unspecified, not intractable, without status epilepticus; T45.526A Underdosing of antithrombotic drugs, initial encounter; T42.6X6A Underdosing of other antiepileptic and sedative-hypnotic drugs, initial encounter; Y92.009 Unspecified place in unspecified non-institutional (private) residence as the place of occurrence of the external cause; Z91.138 Patient's unintentional underdosing of medication regimen for other reason; M50.322 Other cervical disc degeneration at C5-C6 level; M48.02 Spinal stenosis, cervical region; M06.9 Rheumatoid arthritis, unspecified; M79.7 Fibromyalgia; G89.29 Other chronic pain; K21.9 Gastro-esophageal reflux disease without esophagitis; F31.9 Bipolar disorder, unspecified; F17.210 Nicotine dependence, cigarettes, uncomplicated; F41.9 Anxiety disorder, unspecified; Z79.899 Other long term (current) drug therapy; Z79.891 Long term (current) use of opiate analgesic; Z86.14 Personal history of Methicillin resistant Staphylococcus aureus infection
CPT/HCPCS: 10061; 36415; 70496; 70498; 70551; 73701; 80048; 80053; 80202; 80306; 80320; 81001; 81025; 82040; 83690; 83735; 84100; 85025; 85610; 87070; 87150; 87181; 87205; 93005; 96365; 96375; 97161; 99156; 99284; 99285; 99406; A9270; J1170; J1200; J2060; J2765; J3010; J3370; J7120; Q9967; 81003; 87086; 94770

== ENCOUNTER 2019-09-02 06:40 | Emergency (ER) | payer MEDICAID ==
[2019-09-02] MEDS ORDERED: DOXYCYCLINE 100 MG TABLET PO STA (07:33)
[2019-09-02] MEDS ORDERED: oxyCODONE 5 MG TABLET PO STA (07:40)
--- NOTE | 2019-09-02 08:09 | ED Physician Documentation ---
History of Present Illness - Stated complaint Stated Complaint: WOUND INFECTION - Chief complaint Chief Complaint: Wound - History obtained from History obtained from: Patient, Friend - History of Present Illness Pain level max: 10 Pain level now: 10 - Additonal information Additional information: 38-year-old female presents to the emergency department stating that she had bilateral incision and drainage is performed for abscesses on her bilateral thighs. She has a history of IV drug use. Uses heroin. She is also on methadone, 80 mg by mouth daily. She states that she has been unable to make it to the methadone clinic for the last 2 days because of pain. She has not shown up to her wound care appointments for her legs. She states that she was unable to fill the doxycycline. She was however able to fill her oxycodone which she is now out of. She states that her legs hurt too much to walk and she is requesting placement in a halfway. She denies any fevers. No vomiting. Nothing makes it better or worse. Review of Systems Ten Systems: 10 systems reviewed and negative Constitutional: denies: Fever Ears: denies: Ear pain Nose: denies: Rhinorrhea / runny nose, Congestion GI: denies: Vomiting, Diarrhea Musculoskeletal: denies: Neck pain, Back pain Neurologic: denies: Headache PD PAST MEDICAL HISTORY - Past Medical History Cardiovascular: None Respiratory: None Neuro: CVA, Seizure disorder Endocrine/Autoimmune: Systemic lupus erythematosus GI: Hepatitis, Cholelithiasis : Retention, Chronic bladder infection HEENT: None Psych: Depression, Anxiety, Post traumatic stress disorder Musculoskeletal: Rheumatoid arthritis, Fibromyalgia, Fatigue, Chronic back pain Derm: None - Past Surgical History Past Surgical History: Yes General: Cholecystectomy, Colonoscopy, EGD /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 I BLOCKER: section, 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 - Present Medications Home Medications: Ambulatory Orders Medication Instructions Recorded Confirmed Gabapentin 600 mg PO BID 04/09/19 08/24/19 Methadone 80 mg PO DAILY 04/09/19 08/24/19 ALPRAZolam [Alprazolam] 0.25 mg PO TID 08/24/19 08/24/19 Clopidogrel [Plavix] 75 mg PO DAILY 08/24/19 08/24/19 Acetaminophen [Tylenol Extra 1,000 mg PO Q8HR #30 tablet 08/27/19 Strength] Doxycycline Monohydrate 100 mg PO BID 5 Days #10 tablet 08/27/19 Gauze Bandage [Gauze Pad] 1 each TP DAILY #14 bandage 08/27/19 Gauze Bandage [Rolled Gauze] 1 each TP DAILY #14 bandage 08/27/19 Levetiracetam [Keppra] 750 mg PO BID #60 tablet 08/27/19 Pravastatin [Pravachol] 80 mg PO QPM tablet 08/27/19 Soft Lens Rinse,Store Solution 25 ml MC DAILY #1 solution 08/27/19 [Saline Solution] oxyCODONE [Roxicodone] 10 mg PO Q6H PRN #30 tablet 08/27/19 Doxycycline Hyclate 100 mg PO BID #20 capsule 09/02/19 - Allergies Allergies/Adverse Reactions: Allergies Allergy/AdvReac Type Severity Reaction Status Date / Time meperidine HCl * Allergy unknown Verified 09/02/19 06:51 [From Demerol] ondansetron HCl * Allergy unknown Verified 09/02/19 06:51 [From Zofran] Penicillins Allergy unknown Verified 09/02/19 06:51 ibuprofen AdvReac Mild Nausea Verified 09/02/19 06:51 hydrocodone bitartrate * AdvReac Nausea Verified 09/02/19 06:51 [From Vicodin] - Social History Does the pt smoke?: Yes Smoking Status: Current every day smoker Does the pt drink ETOH?: Yes Does the pt have substance abuse?: Yes - Immunizations Immunizations are current?: Yes - POLST Patient has POLST: No POLST Status: Full Code PD ED PE NORMAL - Vitals Vital signs reviewed: Yes - General General: Alert and oriented X 3, Other (Rocking back and forth in the bed.) - HEENT HEENT: Moist mucous membranes - Neck Neck: Supple, no meningeal sign - Cardiac Cardiac: RRR - Respiratory Respiratory: No respiratory distress, Clear bilaterally - Abdomen Abdomen: Soft, Non tender, Non distended - Derm Derm: Warm and dry - Extremities Extremities: Other (Open wounds to the distal lateral aspects of the bilateral thighs. These are draining. Left is draining more than the right. No surrounding cellulitis.) - Neuro Neuro: Alert and oriented X 3 Results - Vitals Vitals: Vital Signs - 24 hr 09/02/19 09/02/19 09/02/19 06:46 10:55 11:28 Temperature 36.8 C 37.1 C Heart Rate 107 H 75 59 L Respiratory 20 16 20 Rate Blood Pressure 145/101 H 111/72 117/74 O2 Saturation 100 100 100 09/02/19 12:55 Temperature 36.4 C L Heart Rate 67 Respiratory 16 Rate Blood Pressure 113/79 O2 Saturation 100 Oxygen O2 Source Room air PD MEDICAL DECISION MAKING - ED course Complexity details: reviewed old records, re-evaluated patient, considered differential, d/w patient, d/w sales enablement consultant ED course: 38-year-old female presents to the emergency department with bilateral lower extremity open wounds from incision and drainage. She has not followed up with wound care. She has not taken her antibiotics. Her antibiotics were given here. Wound care was consulted, came evaluated the patient and repacked the wounds. She will follow-up with them on Saturday. Social work was consulted and helped arrange transportation to and from her appointments for her. She is on methadone at home. She was given a dose of oxycodone here. No fevers. No vomiting. No evidence of sepsis. No fevers. Patient counseled regarding signs and symptoms for which I believe and urgent re-evaluation would be necessary. Patient with good understanding of and agreement to plan and is comfortable going home at this time This document was made in part using voice recognition software. While efforts are made to proofread this document, sound alike and grammatical errors may occur. Departure - Departure Disposition: 01 Home, Self Care Clinical Impression: Abscess Condition: Good Instructions: ED Abscess IandD Follow-Up: Jeromy Ferrer MD [Provider Admit Priv/Credential] - Within 3 Days Prescriptions: Doxycycline Hyclate 100 mg PO BID #20 capsule Comments: You need to follow-up with wound care on Saturday as scheduled. Change bandages as instructed by wound care today. Follow-up with Dr. Ferrer for further care. Discharge Date/Time: 09/02/19 13:39
[2019-09-02] MEDS ORDERED: CYCLOBENZAPRINE 10 MG TABLET PO STA (09:21)
[2019-09-02 12:55] VITALS: BP 113/79
== END 2019-09-02 13:39 | disposition home or self-care (01) ==
LOC: ED 06:40
DX: L02.416 Cutaneous abscess of left lower limb (principal); L02.415 Cutaneous abscess of right lower limb; F11.90 Opioid use, unspecified, uncomplicated; M32.9 Systemic lupus erythematosus, unspecified; M06.9 Rheumatoid arthritis, unspecified; M79.7 Fibromyalgia; F17.200 Nicotine dependence, unspecified, uncomplicated
CPT/HCPCS: 99283; 99284; A9270

== ENCOUNTER 2020-03-06 15:57 | Outpatient (CLI) | payer MEDICAID | END 2020-03-06 23:59 | disposition short-term general hospital (02) | LOC: EMS 15:57 | PROVIDERS: ATTEND Surgery | DX: R47.81 Slurred speech (principal); H53.8 Other visual disturbances; R47.02 Dysphasia; R07.9 Chest pain, unspecified; R51 Headache ==

== ENCOUNTER 2020-07-08 11:12 | Emergency (ER) | payer MEDICAID ==
[2020-07-08] MEDS ORDERED: SODIUM CHLORIDE 0.9% 1,000 ML IV STA (12:31)
[2020-07-08 12:37] LABS: BASOPHILS % (AUTO) 0.4 %; EOSINOPHILS # (AUTO) 0.2 10^3/uL (0.0-0.7); EOSINOPHILS % (AUTO) 2.3 %; HGB - HEMOGLOBIN 9.3 g/dL (12.0-16.0); LYMPHOCYTES # (AUTO) 0.9 10^3/uL (1.5-3.5); LYMPHOCYTES % (AUTO) 11.5 %; MEAN CORPUSCULAR HEMOGLOBIN 21.4 pg (27.0-31.0); MEAN CORPUSCULAR HGB CONC 29.2 g/dL (32.0-36.0); MEAN CORPUSCULAR VOLUME 73.1 fL (81.0-99.0); MEAN PLATELET VOLUME 10.3 fL (7.9-10.8); MONOCYTES # (AUTO) 0.6 10^3/uL (0.0-1.0); MONOCYTES % (AUTO) 7.3 %; NEUTROPHILS # (AUTO) 5.9 10^3/uL (1.5-6.6); PLT - PLATELET COUNT 333 10^3/uL (130-450); RED BLOOD COUNT 4.35 10^6/uL (4.20-5.40); WHITE BLOOD COUNT 7.5 x10^3/uL (4.8-10.8)
[2020-07-08 12:43] LABS: INR 1.4 (0.8-1.2); PT - PROTHROMBIN TIME 15.8 secs (9.9-12.6)
[2020-07-08 12:49] LABS: ALBUMIN 3.3 g/dL (3.2-5.5); ALBUMIN/GLOBULIN RATIO 0.6 (1.0-2.2); BILIRUBIN,TOTAL 0.7 mg/dL (0.2-1.0); CALCIUM 9.3 mg/dL (8.5-10.3); CREATININE 0.7 mg/dL (0.4-1.0); TOTAL PROTEIN 8.4 g/dL (6.7-8.2)
[2020-07-08] MEDS ORDERED: IOVERSOL 320 100 ML VIAL IVP ONE ×2 (12:54→14:24)
[2020-07-08] MEDS ORDERED: BUFFERED LIDOCAINE 10 ML SYRINGE IU ONE (13:00)
[2020-07-08] MEDS ORDERED: KETAMINE 500 MG/10 ML VIAL IVP STA ×2 (13:32→14:15)
--- NOTE | 2020-07-08 13:56 | CT Report ---
PROCEDURE: ANGIO HEAD W/WO INDICATIONS: Left-sided facial droop CONTRAST: IV CONTRAST: Optiray 320 ml: 140 PO CONTRAST: *NO PO CONTRAST TECHNIQUE: Precontrast 4.5 mm thick angled axial sections acquired from the foramen magnum to the vertex. Afte r the administration of intravenous contrast, 1 mm thick sections acquired through the [place] of [place] is. Postcontrast 4.5 mm thick sections then re-acquired from the foramen magnum to the vertex. 3-di mensional unowija-tbuagmydb-hhpzsumcnv (MIP) and/or volume rendering reformats were acquired of the c entral intracranial vasculature. For radiation dose reduction, the following was used: automated ex posure control, adjustment of mA and/or kV according to patient size. COMPARISON: None FINDINGS: Image quality: Excellent. Anterior circulation: Intracranial internal carotid arteries are normal in size and flow. The flow within the paired anterior cerebral arteries is normal and symmetric. The flow within the middle cer ebral arteries is normal and symmetric. The anterior communicating artery is seen. No aneurysms are seen. Posterior circulation: Visualized portions of the vertebral arteries demonstrate normal caliber, and join to form a normal appearing basilar artery. Flow within the posterior cerebral arteries is norm al and symmetric. No aneurysms are seen. CSF spaces: Ventricles are normal in size and shape. Basal cisterns are patent. No extra-axial flu id collections. Brain: No midline shift. No intracranial bleeds or masses. Conteh-white matter interface appears int act. Skull and face: Calvarium and facial bones appear intact, without suspicious lesions. Sinuses: Visualized sinuses and mastoids are clear. IMPRESSION: No CT evidence of acute infarct or other acute intracranial process. No hemodynamic significant steno sis or occlusion of the major intracranial arterial circulation. Reviewed by: Liam Cespedes MD on 07/08/2020 1:55 PM PDT Approved by: Liam Cespedes MD on 07/08/2020 1:55 PM PDT Station ID: [id number]
--- NOTE | 2020-07-08 13:57 | CT Report ---
PROCEDURE: ANGIO NECK W INDICATIONS: Left-sided facial droop, left-sided neck pain CONTRAST: IV CONTRAST: Optiray 320 ml: 140 PO CONTRAST: *NO PO CONTRAST TECHNIQUE: After the administration of intravenous contrast, 1.5 mm axial sections acquired from the aortic arch to the [place] of [place]. Coronal 3-D maximum intensity projection (MIP) and/or volume rendering ref ormats were then performed. For radiation dose reduction, the following was used: automated exposur e control, adjustment of mA and/or kV according to patient size. COMPARISON: None. FINDINGS: Image quality: Excellent. Carotid system: The great vessels demonstrate a conventional anatomy as they arise from the aortic a rch. The origins of the common carotid arteries appear patent. The common carotid arteries demonstr ate normal calibers and courses. The bifurcation regions appear normal bilaterally. The internal ca rotid arteries demonstrate normal caliber and course. Posterior circulation: The origins of the vertebral arteries appear patent. The more superior porti ons of the vertebral arteries demonstrate normal course and caliber. They join to form a normal appe aring basilar artery. Soft tissues: Visualized neck soft tissues demonstrate no suspicious abnormalities. The thyroid gla nd is normal in size. Bones: No suspicious bony lesions. Visualized cervical spine appears normally aligned. Cervical spi ne degenerative changes. IMPRESSION: No hemodynamically significant stenosis of the major extracranial arterial circulation. The estimate of stenosis included in the report of the imaging study was calculated using the NASCET method Reviewed by: Liam Cespedes MD on 07/08/2020 1:56 PM PDT Approved by: Liam Cespedes MD on 07/08/2020 1:56 PM PDT Station ID: [id number]
[2020-07-08] MEDS ORDERED: KETAMINE 500 MG/10 ML VIAL IM STA (14:18)
[2020-07-08] MEDS ORDERED: CLINDAMYCIN 150 MG CAPSULE PO STA (14:47)
[2020-07-08] MEDS ORDERED: HYDROmorphone 1 MG/ML CARPUJECT IVP STA (14:47)
--- NOTE | 2020-07-08 14:47 | ED Physician Documentation ---
History of Present Illness - Stated complaint Stated Complaint: NUMBNESS LT SIDE - Chief complaint Chief Complaint: Neuro - History obtained from History obtained from: Patient - Additonal information Additional information: Patient comes emergency department with chief complaint of left leg abscess. The patient states that she began to notice pain in the lateral aspect of her left thigh about a week ago but over the last few days, the area has become increasingly swollen and painful. Patient states that it is hard for her to move her leg now because of the pain. She has had multiple abscesses in this area. 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 She states she has not been shooting in the area recently. Patient denies any fevers or chills. She denies any drainage from the area. Patient complains of numbness of her left side, which has been going on on and off Chronically, due to some neck problems. Patient does note that today, she also experienced some left facial numbness, and felt that her left hand was little weak. However, she is not sure whether this is because of the numbness or whether it was weak on its own. Patient states she is spent the last couple of days in bed mostly, because of the abscess and related pain. Patient has a history of 2 TIAs, which she states were different than her symptoms today. Patient states that on both of these occasions, she had changes in her vision and slurred speech. Patient denies any such symptoms at this time. No other complaints at this time. Review of Systems Ten Systems: 10 systems reviewed and negative Constitutional: reports: Reviewed and negative Eyes: reports: Reviewed and negative Ears: reports: Reviewed and negative Nose: reports: Reviewed and negative Throat: reports: Reviewed and negative Cardiac: reports: Reviewed and negative Respiratory: reports: Reviewed and negative GI: reports: Reviewed and negative : reports: Reviewed and negative Skin: reports: Other (Abscess) Musculoskeletal: reports: Reviewed and negative Neurologic: reports: Numbness Psychiatric: reports: Reviewed and negative Endocrine: reports: Reviewed and negative Immunocompromised: reports: Reviewed and negative PD PAST MEDICAL HISTORY - Past Medical History Cardiovascular: None Respiratory: None Neuro: CVA, Seizure disorder Endocrine/Autoimmune: Systemic lupus erythematosus GI: Hepatitis, Cholelithiasis : Retention, Chronic bladder infection HEENT: None Psych: Depression, Anxiety, Post traumatic stress disorder Musculoskeletal: Rheumatoid arthritis, Fibromyalgia, Fatigue, Chronic back pain Derm: None - Past Surgical History Past Surgical History: Yes General: Cholecystectomy, Colonoscopy, 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: section, 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 - Present Medications Home Medications: Ambulatory Orders Medication Instructions Recorded Confirmed Gabapentin 600 mg PO BID 04/09/19 08/24/19 Methadone 80 mg PO DAILY 04/09/19 08/24/19 ALPRAZolam [Alprazolam] 0.25 mg PO TID 08/24/19 08/24/19 Clopidogrel [Plavix] 75 mg PO DAILY 08/24/19 08/24/19 Acetaminophen [Tylenol Extra 1,000 mg PO Q8HR #30 tablet 08/27/19 Strength] Doxycycline Monohydrate 100 mg PO BID 5 Days #10 tablet 08/27/19 Gauze Bandage [Gauze Pad] 1 each TP DAILY #14 bandage 08/27/19 Gauze Bandage [Rolled Gauze] 1 each TP DAILY #14 bandage 08/27/19 Levetiracetam [Keppra] 750 mg PO BID #60 tablet 08/27/19 Pravastatin [Pravachol] 80 mg PO QPM tablet 08/27/19 Soft Lens Rinse,Store Solution 25 ml MC DAILY #1 solution 08/27/19 [Saline Solution] oxyCODONE [Roxicodone] 10 mg PO Q6H PRN #30 tablet 08/27/19 Doxycycline Hyclate 100 mg PO BID #20 capsule 09/02/19 Sulfamethox/Trimeth 800/160 1 each PO BID #14 tablet 07/08/20 [Bactrim Ds 800/160] traMADol [Ultram] 50 mg PO Q4-6H PRN #12 tablet 07/08/20 - Allergies Allergies/Adverse Reactions: Allergies Allergy/AdvReac Type Severity Reaction Status Date / Time meperidine HCl * Allergy unknown Verified 09/02/19 06:51 [From Demerol] ondansetron HCl * Allergy unknown Verified 09/02/19 06:51 [From Zofran] Penicillins Allergy unknown Verified 09/02/19 06:51 ibuprofen AdvReac Mild Nausea Verified 09/02/19 06:51 hydrocodone bitartrate * AdvReac Nausea Verified 09/02/19 06:51 [From Vicodin] - Social History Does the pt smoke?: Yes Smoking Status: Current every day smoker Does the pt drink ETOH?: Yes Does the pt have substance abuse?: Yes - Immunizations Immunizations are current?: Yes - POLST Patient has POLST: No POLST Status: Full Code PD ED PE NORMAL - Vitals Vital signs reviewed: Yes - General General: Alert and oriented X 3, No acute distress - HEENT HEENT: Atraumatic, PERRL, EOMI, Moist mucous membranes - Neck Neck: Supple, no meningeal sign - Cardiac Cardiac: RRR, No murmur, Strong equal pulses - Respiratory Respiratory: No respiratory distress, Clear bilaterally - Abdomen Abdomen: Soft, Non tender, Non distended - Derm Derm: Warm and dry, No rash, Other (20 cm diameter abscess on patient's left distal lateral thigh. Minimal associated erythema. No drainage. Large fluctuant area comprises nearly the entire abscess area.) - Extremities Extremities: No deformity, Other (Large abscess noted on patient's left distal lateral thigh.) - Neuro Neuro: Alert and oriented X 3, center aisle cashier 2-12 intact, No motor deficit (Motor exam of left lower extremity limited by pain. Patient is able to move her left foot and ankle, however.), No sensory deficit, Normal speech - Psych Psych: Normal mood, Normal affect Results - Vitals Vitals: Oxygen O2 Source Nasal cannula - EKG (time done) 1136 Rate: Rate (enter#) (79) Rhythm: NSR [place]: Normal Intervals: Normal CO QRS: Normal Ischemia: Normal ST segments. No: T wave inversion Compare to prior EKG: Old EKG unavailable Computer interpretation: Agree with computer - Labs Labs: Laboratory Tests 07/08/20 07/08/20 07/08/20 12:08 12:08 12:08 WBC 7.5 RBC 4.35 Hgb 9.3 L Hct 31.8 L MCV 73.1 L MCH 21.4 L MCHC 29.2 L RDW 18.0 H Plt Count 333 MPV 10.3 Neut # (Auto) 5.9 Lymph # (Auto) 0.9 L Jay # (Auto) 0.6 Eos # (Auto) 0.2 Baso # (Auto) 0.0 Absolute Nucleated RBC 0.00 Nucleated RBC % 0.0 PT 15.8 H INR 1.4 H Sodium 140 Potassium 3.6 Chloride 103 Carbon Dioxide 26 Anion Gap 11.0 BUN 12 Creatinine 0.7 Estimated GFR (MDRD) 94 Glucose 100 Calcium 9.3 Total Bilirubin 0.7 AST 14 ALT 10 Alkaline Phosphatase 85 Total Protein 8.4 H Albumin 3.3 Globulin 5.1 H Albumin/Globulin Ratio 0.6 L Lipase 26 - Rads (name of study) CTA head Radiology: Final report received, EMP read indepedently, See rad report CTA neck Radiology: Final report received, EMP read indepedently, See rad report (No significant arterial stenosis) Procedures - Abscess I&D (location) L thigh Preparation: Betadine Incision: Incised with scalpel, Purulent drainage (copious), Irrigated, Packed, Culture obtained Other: Pt tolerated well, Dressing applied, Antibiotic prescribed - Procedural sedation Sedation prep: Informed consent, Time out completed, PE performed, ASA 1 - healthy, IV O2 monitor, RT present Sedation medications: ketamine Patient status during sedation: Drowsy (Somewhat difficult to sedate.), Vitals remained stable, Maintained airway, Recovered uneventfully Sedation recovery: Recovered uneventfully Time in sedation (Minutes): 25 PD MEDICAL DECISION MAKING - ED course Complexity details: reviewed old records, reviewed results, re-evaluated patient, considered differential, d/w patient ED course: The patient was worked up with labs, EKG, and CTs of the head and neck which were negative for acute findings. I felt that the patient's paresthesias were most likely due to her neck issues. The patient had experienced ipsilateral facial numbness briefly, and the etiology of this is unclear. No evidence of an acute stroke was found. The patient had a very large abscess which needed drainage and this was done as noted above. Copious amounts of foul-smelling pus were evacuated, after which the patient was given a dose of antibiotics. I talked to the patient about whether she would like to have any medication for pain or not, given that she is a recovering addict but we have just I indeed a very large abscess on her leg. The patient stated that she would like to have some analgesia at home, and this is been prescribed. I discussed wound care at home with the patient and the need for packing change in the next 2 to 3 days. We have discussed also the usual indications for return. Departure - Departure Disposition: 01 Home, Self Care Clinical Impression: Arm paresthesia, left, Left leg paresthesias, Abscess Condition: Stable Instructions: ED Abscess IandD Prescriptions: Sulfamethox/Trimeth 800/160 [Bactrim Ds 800/160] 1 each PO BID #14 tablet traMADol [Ultram] 50 mg PO Q4-6H PRN #12 tablet PRN Reason: Pain Comments: Your CT scans show no evidence of a stroke at this time. Most likely, the numbness on your left side is due to the problems in your neck. Your abscess has been incised and drained. Please take the antibiotics as directed and the pain medication as needed. You will need to have the packing changed in your wound in 2 to 3 days. Please follow-up with your primary care physician or come to the emergency department for repacking if you are unable to change the packing at home. Discharge Date/Time: 07/08/20 16:22
[2020-07-08] MEDS ORDERED: traMADol 50 MG TABLET PO STA (14:48)
[2020-07-08 16:07] VITALS: BP 114/73
== END 2020-07-08 16:22 | disposition home or self-care (01) ==
LOC: ED 11:12
DX: L02.416 Cutaneous abscess of left lower limb (principal); R20.2 Paresthesia of skin; Z86.73 Personal history of transient ischemic attack (TIA), and cerebral infarction without residual deficits; G89.29 Other chronic pain; G40.909 Epilepsy, unspecified, not intractable, without status epilepticus; M32.9 Systemic lupus erythematosus, unspecified; K75.9 Inflammatory liver disease, unspecified; F17.200 Nicotine dependence, unspecified, uncomplicated; Z79.891 Long term (current) use of opiate analgesic
CPT/HCPCS: 10061; 70496; 70498; 80053; 83690; 85025; 85610; 93005; 96361; 96374; 99152; 99285; A9270; J1170; Q9967; 36415; 94770

== ENCOUNTER 2022-01-31 14:13 | Outpatient (CLI) | payer MEDICAID | END 2022-01-31 23:59 | disposition critical access hospital (66) | LOC: EMS 14:13 | DX: R53.81 Other malaise (principal); R52 Pain, unspecified; R06.00 Dyspnea, unspecified; R53.1 Weakness | CPT/HCPCS: A0425; A0429; A0999 ==

== ENCOUNTER 2022-01-31 14:37 | Emergency (ER) | payer MEDICAID ==
[2022-01-31] MEDS ORDERED: PROMETHAZINE 25 MG/1 ML VIAL IM STA (15:07)
[2022-01-31] MEDS ORDERED: cefTRIAXone 1 GM VIAL IM STA (15:10)
--- OUTSIDE RECORDS SUMMARY | 2022-01-31 15:27 | EXTERNAL MEDICAL SUMMARY RPT | Continuity of Care Document ---
:1980 Author Organization [facility] Address [address] [place] [address] Phone Allergies No information. Encounters No information. Medications No information. Problems date description facility [id number] Sepsis, unspecified organism [facility] [id number] Cutaneous abscess, unspecified [facility] Results No information.
[2022-01-31] MEDS: MORPHINE 10 MG/ML VIAL IM STA (15:36)
--- NOTE | 2022-01-31 17:18 | ED Physician Documentation ---
History of Present Illness - Stated complaint Stated Complaint: GENERAL WEAKNESS - Chief complaint Chief Complaint: General - History obtained from History obtained from: Patient - History of Present Illness Timing: How many days ago (2-3) Pain level max: 5 Pain level now: 5 - Additonal information Additional information: Patient is a 41-year-old female who comes in the emergency department complaining of nausea and vomiting for the past 2 to 3 days. Unable to keep her methadone down. Feels like she is in withdrawal. No fevers. No chills. She is concerned about possible cellulitis of the left hip. Review of Systems Constitutional: denies: Fever, Chills Cardiac: denies: Chest pain / pressure, Palpitations Respiratory: denies: Cough GI: reports: Abdominal Pain (diffuse, crampy), Nausea, Vomiting. denies: Diarrhea : denies: Dysuria, Now EGA Skin: denies: Rash Musculoskeletal: denies: Neck pain, Back pain Neurologic: denies: Headache PD PAST MEDICAL HISTORY - Past Medical History Cardiovascular: None Respiratory: None Neuro: CVA, Seizure disorder Endocrine/Autoimmune: Systemic lupus erythematosus GI: Hepatitis, Cholelithiasis : Retention, Chronic bladder infection HEENT: None Psych: Depression, Anxiety, Post traumatic stress disorder Musculoskeletal: Rheumatoid arthritis, Fibromyalgia, Fatigue, Chronic back pain Derm: None - Past Surgical History Past Surgical History: Yes General: Cholecystectomy, Colonoscopy, EGD /[facility]: section, 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 - Present Medications Home Medications: Ambulatory Orders Medication Instructions Recorded Confirmed Gabapentin 600 mg PO BID 04/09/19 08/24/19 Methadone [Methadone Hcl] 80 mg PO DAILY 04/09/19 08/24/19 ALPRAZolam [Alprazolam] 0.25 mg PO TID 08/24/19 08/24/19 Clopidogrel [Plavix] 75 mg PO DAILY 08/24/19 08/24/19 Acetaminophen [Tylenol Extra 1,000 mg PO Q8HR #30 tablet 08/27/19 Strength] Doxycycline Monohydrate 100 mg PO BID 5 Days #10 tablet 08/27/19 Gauze Bandage [Gauze Pad] 1 each TP DAILY #14 bandage 08/27/19 Gauze Bandage [Rolled Gauze] 1 each TP DAILY #14 bandage 08/27/19 Levetiracetam [Keppra] 750 mg PO BID #60 tablet 08/27/19 Pravastatin [Pravachol] 80 mg PO QPM tablet 08/27/19 Soft Lens Rinse,Store Solution 25 ml MC DAILY #1 solution 08/27/19 [Saline Solution] oxyCODONE [Roxicodone] 10 mg PO Q6H PRN #30 tablet 08/27/19 Doxycycline Hyclate 100 mg PO BID #20 capsule 09/02/19 Sulfamethox/Trimeth 800/160 1 each PO BID #14 tablet 07/08/20 [Bactrim Ds 800/160] traMADol [Ultram] 50 mg PO Q4-6H PRN #12 tablet 07/08/20 Doxycycline Monohydrate 100 mg PO BID #20 cap 01/31/22 Promethazine [Phenergan] 25 mg PO Q6H PRN #10 tab 01/31/22 - Allergies Allergies/Adverse Reactions: Allergies Allergy/AdvReac Type Severity Reaction Status Date / Time meperidine HCl * Allergy unknown Verified 01/31/22 14:46 [From Demerol] ondansetron HCl * Allergy unknown Verified 01/31/22 14:46 [From Zofran] Penicillins Allergy unknown Verified 01/31/22 14:46 ibuprofen AdvReac Mild Nausea Verified 01/31/22 14:46 hydrocodone bitartrate * AdvReac Nausea Verified 01/31/22 14:46 [From Vicodin] - Social History Does the pt smoke?: Yes Smoking Status: Current every day smoker Does the pt drink ETOH?: Yes Does the pt have substance abuse?: Yes - Immunizations Immunizations are current?: Yes - POLST Patient has POLST: No POLST Status: Full Code PD ED PE NORMAL - Vitals Vital signs reviewed: Yes - General General: Alert and oriented X 3, No acute distress, Well developed/nourished - HEENT HEENT: PERRL, Moist mucous membranes - Neck Neck: Supple, no meningeal sign - Cardiac Cardiac: RRR, Strong equal pulses - Respiratory Respiratory: No respiratory distress, Clear bilaterally - Abdomen Abdomen: Soft, Non distended, Other (mild diffuse TTP without peritoneal signs) - Back Back: No spinal TTP - Derm Derm: Warm and dry - Extremities Extremities: No edema, No calf tenderness / cord, Other (2x2cm erythema to the L hip, no fluctuance or erythema) - Neuro Neuro: Alert and oriented X 3 - Psych Psych: Normal mood, Normal affect Results - Vitals Vitals: Vital Signs - 24 hr 01/31/22 01/31/22 01/31/22 14:42 15:42 16:39 Temperature 36.3 C L Heart Rate 88 104 H 90 Respiratory 20 20 16 Rate Blood Pressure 102/75 104/72 100/73 O2 Saturation 97 98 98 01/31/22 01/31/22 01/31/22 18:00 20:00 20:47 Temperature Heart Rate 72 100 Respiratory 20 20 20 Rate Blood Pressure 102/73 104/76 O2 Saturation 99 100 01/31/22 20:56 Temperature 37.7 C Heart Rate 100 Respiratory 18 Rate Blood Pressure 109/59 L O2 Saturation 100 Oxygen O2 Source Room air - Labs Labs: Laboratory Tests 01/31/22 01/31/22 19:13 19:30 Urine Color YELLOW Urine Clarity HAZY Urine pH 5.5 Ur Specific [place] 1.010 Urine Protein 30 H Urine Glucose (UA) NEGATIVE Urine Ketones NEGATIVE Urine Occult Blood TRACE-INTA Urine Nitrite NEGATIVE Urine Bilirubin NEGATIVE Urine Urobilinogen 0.2 (NORMAL) Ur Leukocyte Esterase MODERATE H Urine RBC 0-5 Urine WBC 11-25 H Ur Squamous Epith Cells MOD Squamous H Urine Bacteria Few Ur Microscopic Review INDICATED Urine Culture Comments NOT INDICATED Urine HCG, Qual NEGATIVE Nasal Adenovirus (PCR) NOT DETECTED Nasal B. parapertussis DNA (PCR) NOT DETECTED Nasal Coronavir 229E PCR NOT DETECTED Nasal Coronavir HKU1 PCR NOT DETECTED Nasal Coronavir NL63 PCR NOT DETECTED Nasal Coronavir OC43 PCR NOT DETECTED Nasal Enterovir/Rhinovir PCR NOT DETECTED Nasal Influenza B PCR NOT DETECTED Nasal Influenza A PCR NOT DETECTED Nasal Parainfluen 1 PCR NOT DETECTED Nasal Parainfluen 2 PCR NOT DETECTED Nasal Parainfluen 3 PCR NOT DETECTED Nasal Parainfluen 4 PCR NOT DETECTED Nasal RSV (PCR) NOT DETECTED Nasal B.pertussis DNA PCR NOT DETECTED Nasal C.pneumoniae (PCR) NOT DETECTED Jorge Human Metapneumo PCR NOT DETECTED Nasal M.pneumoniae (PCR) NOT DETECTED Nasal SARS-CoV-2 (PCR) NOT DETECTED - Rads (name of study) CT abd/pelvis Radiology: Final report received, EMP read contemporaneously, See rad report cxr Radiology: Final report received, EMP read contemporaneously, See rad report (Mild atypical pneumonia. ) PD MEDICAL DECISION MAKING - ED course Complexity details: reviewed results, re-evaluated patient, considered differential, d/w patient ED course: Patient was given pain medicine, Ativan, albuterol. She states that no one is able for able to start an IV on her unless they place a central line. She is not febrile or septic appearing. I do not think the risk of a central line is needed at this time. Tolerating p.o. without difficulty after IM medication. Started on antibiotics. CT scan shows possible right lower lobe pneumonia. Chest x-ray is consistent with a mild pneumonia. We will place her on doxycycline as this should likely cover the cellulitis on the hip and the lungs. We will have her follow-up closely with her doctor. Ambulating without difficulty. Well-appearing, nontoxic. Afebrile. No hypoxia. No respiratory distress. Patient counseled regarding signs and symptoms for which I believe and urgent re-evaluation would be necessary. Patient with good understanding of and agreement to plan and is comfortable going home at this time This document was made in part using voice recognition software. While efforts are made to proofread this document, sound alike and grammatical errors may occur. IMPRESSION: 1. No evidence of urinary tract calcification, nor obstruction. 2. Right lower lobe pneumonia. 3. Appendix not seen. No evidence of appendicitis. Departure - Departure Disposition: 01 Home, Self Care Clinical Impression: Generalized muscle ache, Narcotic withdrawal Cellulitis Qualifiers: Site of cellulitis: extremity Site of cellulitis of extremity: lower extremity Laterality: left Qualified Code(s): L03.116 - Cellulitis of left lower limb Pneumonia Qualifiers: Pneumonia type: due to unspecified organism Laterality: right Lung location: lower lobe of lung Qualified Code(s): J18.9 - Pneumonia, unspecified organism Condition: Good Instructions: ED Abdominal Pain Female Non-Specific Abdominal Pain, ED Infec Skin Cellulitis, ED Pneumonia Adult Follow-Up: your,doctor in 3 days [Other] Prescriptions: Doxycycline Monohydrate 100 mg PO BID #20 cap Promethazine [Phenergan] 25 mg PO Q6H PRN #10 tab PRN Reason: Nausea / Vomiting Comments: Take all antibiotics until gone. Return if you worsen. Please continue your methadone at home as well. [facility] [place].
[2022-01-31] MEDS ORDERED: METHADONE 5 MG TABLET PO STA (17:19)
--- NOTE | 2022-01-31 18:38 | CT Report ---
PROCEDURE: Abdomen/Pelvis WO INDICATIONS: diffuse abd pain TECHNIQUE: Noncontrast 5 mm thick sections acquired from the diaphragms to the symphysis. 5 mm coronal and sagi ttal reformats were then performed. For radiation dose reduction, the following was used: automated exposure control, adjustment of mA and/or kV according to patient size. COMPARISON: None. FINDINGS: Image quality: Excellent. ABDOMEN: Lung bases: Reticular nodular density within the right lower lobe is present. Heart size is normal. Solid organs: Liver and spleen are normal in size. Gallbladder surgically absent Pancreas is otilia l in contours. No adrenal nodules. Kidneys are normal in size, without hydronephrosis or nephrolith iasis. Peritoneum and bowel: Unenhanced bowel loops demonstrate normal wall thickness and caliber. No free fluid or air. Appendix is not seen. No evidence of appendicitis. Nodes and vessels: No retroperitoneal or mesenteric adenopathy by size criteria. Aorta and inferior vena cava are normal in caliber. Miscellaneous: No ventral hernias. PELVIS: Genitourinary: Bladder wall thickness is normal. Miscellaneous: No inguinal hernias or adenopathy. Bones: No suspicious bony lesions. No vertebral body compression fractures. IMPRESSION: 1. No evidence of urinary tract calcification, nor obstruction. 2. Right lower lobe pneumonia. 3. Appendix not seen. No evidence of appendicitis. Reviewed by: Ramses Bertrand MD on 01/31/2022 6:37 PM PDT Approved by: Ramses Bertrand MD on 01/31/2022 6:37 PM PDT Station ID: [id number]
[2022-01-31 19:39] LABS: BILIRUBIN,URINE NEGATIVE (NEGATIVE); GLUCOSE, URINE (UA) NEGATIVE (NEGATIVE); KETONES,URINE (UA) NEGATIVE (NEGATIVE); LEUKOCYTE ESTERASE, URINE MODERATE (NEGATIVE); NITRITE,URINE NEGATIVE (NEGATIVE); OCCULT BLOOD,URINE TRACE-INTA (NEGATIVE); PH,URINE 5.5 PH (5.0-7.5); PROTEIN,URINE 30 mg/dL (NEGATIVE); UROBILINOGEN,URINE 0.2 (NORMAL) E.U./dL (NORMAL)
[2022-01-31 19:41] LABS: CLARITY,URINE HAZY (CLEAR); HCG UR QUAL NEGATIVE
--- NOTE | 2022-01-31 19:46 | XRAY Report ---
PROCEDURE: Chest 1 View X-Ray INDICATIONS: possible pneumonia on CT TECHNIQUE: One view of the chest was acquired. COMPARISON: None FINDINGS: Surgical changes and devices: None. Lungs and pleura: No pleural effusions or pneumothorax. There is mild diffuse groundglass opacity. Mediastinum: Mediastinal contours appear normal. Heart size is normal. Bones and chest wall: No suspicious bony lesions. Overlying soft tissues appear unremarkable. IMPRESSION: Mild atypical pneumonia. Reviewed by: Ramses Bertrand MD on 01/31/2022 7:45 PM PDT Approved by: Ramses Bertrand MD on 01/31/2022 7:45 PM PDT Station ID: [id number]
[2022-01-31 19:48] LABS: BACTERIA,URINE Few /HPF (None Seen); RBC,URINE 0-5 /HPF (0-5); SQUAMOUS EPITHELIAL CELL,UR MOD Squamous (<= Few)
[2022-01-31 20:28] LABS: B. PARAPERTUSSIS- RESP PCR PAN NOT DETECTED; B. PERTUSSIS- RESP PCR PANEL NOT DETECTED; C. PNEUMONIAE- RESP PCR PANEL NOT DETECTED; CORONAVIRUS 229E-RESP PCR NOT DETECTED; CORONAVIRUS HKU1-RESP PCR NOT DETECTED; CORONAVIRUS NL63-RESP PCR NOT DETECTED; CORONAVIRUS OC43-RESP PCR NOT DETECTED; HUMAN METAPNEUMOVIRUS NOT DETECTED; INFLUENZA A- RESP PCR PANEL NOT DETECTED; INFLUENZA B - RESP PCR PANEL NOT DETECTED; M. PNEUMONIAE- RESP PCR PANEL NOT DETECTED; PARAINFLUENZA VIRUS 1 NOT DETECTED; PARAINFLUENZA VIRUS 2 NOT DETECTED; PARAINFLUENZA VIRUS 3 NOT DETECTED; PARAINFLUENZA VIRUS 4 NOT DETECTED; RHINOVIRUS/ENTEROVIRUS NOT DETECTED; RSV- RESP PCR PANEL NOT DETECTED; SARS-CoV-2 -RESP PCR PANEL NOT DETECTED
[2022-01-31] MEDS ORDERED: ALBUTEROL NEB 2.5 MG/3 ML INH STA (20:35)
[2022-01-31] MEDS ORDERED: LORazepam 2 MG/ML VIAL IM STA (20:41)
[2022-01-31 21:43] VITALS: BP 100/72
== END 2022-01-31 21:42 | disposition home or self-care (01) ==
LOC: EDUNIT# → EDBD → ED 14:37
DX: F11.23 Opioid dependence with withdrawal (principal); M79.10 Myalgia, unspecified site; T40.2X5A Adverse effect of other opioids, initial encounter; L03.116 Cellulitis of left lower limb; J18.9 Pneumonia, unspecified organism; F17.200 Nicotine dependence, unspecified, uncomplicated; Z20.822 Contact with and (suspected) exposure to COVID-19
CPT/HCPCS: 0202U; 71045; 74176; 81001; 81025; 94640; 96372; 99284; 99285; A9270; J2060; 80053; 81003; 83690; 85025; 87086